=== PATIENT | male | born 1940 | race Caucasian/White ===

== ENCOUNTER 2018-02-13 07:35 | Emergency (ER) | payer SELFPAY ==
[2018-02-13] MEDS ORDERED: NS 500 ML IV ONE (07:37)
--- NOTE | 2018-02-13 07:44 | CPEKG ---
Heart Rate: 53 RR Interval: 1132 P-R Interval: 224 QRSD Interval: 154 QT Interval: 540 QTC Interval: 508 P Trumann: 16 QRS Trumann: -52 T Wave Trumann: 81 EKG Severity - ABNORMAL ECG - EKG Impression: SINUS RHYTHM EKG Impression: FIRST DEGREE AV BLOCK EKG Impression: LEFT BUNDLE BRANCH BLOCK Electronically Signed By: Lance Mccoy 13-Feb-2018 14:35:19
[2018-02-13 08:16] LABS: INR 4.59 (0.83-1.16); PROTIME(PATIENT) 42.9 SEC (12.0-15.0)
--- NOTE | 2018-02-13 08:28 | EDPHY ---
H & P Time Seen by Provider: 02/13/18 08:10 HPI/ROS: HPI Dizzy. 77-year-old male by ambulance with family. This patient reports that he got out of bed to urinate earlier this morning. As he stood up he describes feeling mildly lightheaded but more vertiginous. He reports that he fell to 1 side but was able to catch himself on the wall and did not fall to the ground. He reports that since coming to the emergency department he feels better. He denies any worsening of symptoms with head movement. No associated headache. No loss of sensation or weakness in his extremities. No chest pain. No shortness of breath. No palpitations. ROS: Constitutional: No fever, no chills. As above. Eyes: No discharge. No changes in vision. ENT: No sore throat. No nasal congestion or rhinorrhea. Respiratory: No cough. No shortness of breath. Cardiac: No chest pain, no palpitations. Gastrointestinal: No abdominal pain, no vomiting, no diarrhea. Genitourinary: No hematuria. No dysuria or increased frequency with urination. Musculoskeletal: No back pain. No neck pain. No myalgias or arthralgias. Skin: No rashes. Neurological: No headache. No focal weakness or altered sensation. Past medical history: Appendectomy, hyperlipidemia, GERD. Social history: Nonsmoker. Drinks social alcohol. Had a glass of wine last night. Here with family. Visiting from [place]. He comes to [place] every Spring and Fall. Due to return April 22. Physical Exam: General Appearance: Alert, pleasant 77-year-old male, no distress. This patient is responding to questions appropriately and in full sentences. This patient appears well-hydrated and well-nourished. Head: Normocephalic atraumatic. Eyes: Pupils equal and round and reactive to light at 3-2 mm bilaterally, no pallor or injection. No lid edema, erythema or injection. No nystagmus. Negative head impulse testing. No catch-up saccades. Symptoms not induced by head movement. ENT, Mouth: Mucous membranes are moist. The pharyngeal tissues are unremarkable. No edema or swelling. No asymmetry suggestive of abscess. No erythema or exudates. No tongue lacerations or abrasions. Respiratory: There are no retractions, lungs are clear to auscultation with good air movement bilaterally. Cardiovascular: Regular rate and rhythm. Borderline bradycardia. No murmur appreciated. Gastrointestinal: Abdomen is soft and nontender, no masses, bowel sounds normal. No focal tenderness at McBurney's point. No Villegas sign. Neurological: Motor sensory function is grossly intact. Cranial nerves are normal. Gait is normal. Patient walks unassisted without difficulty. Skin: Warm and dry, no rashes. Musculoskeletal: Neck is supple and nontender. Extremities are symmetrical. All joints range without pain or impingement. Psychiatric: No agitation. No depression. Database: EKG: EKG time is 7:41 a.m.; EKG shows a narrow complex normal sinus rhythm with a ventricular rate of 53. Underlying left bundle branch block with appropriate discordance. The NC, QT intervals are within normal limits. There are no ST-T wave changes indicative of ischemic or injury pattern. No evidence of right heart strain. Interpreted by me. Imaging: Chest x-ray AP portable; the cardiac mediastinal silhouette is unremarkable. 2 right-sided mid lung pulmonary nodules. No evidence of infiltrate or pneumothorax. No acute cardiopulmonary disease process noted. Interpreted by me. Diffusion-weighted MRI of brain without contrast: Significant for potential left internal jugular clot as well as left transverse sinus clot. I discussed case with staff radiologist Dr. Brent Garcia. He recommends CT angiogram imaging of the head neck. This has been ordered. CT angiogram of head and neck: Reviewed with staff radiologist Dr. Brent Garcia. Please see his report for further details. Carotid artery Doppler ultrasounds: Negative. Results discussed with staff radiologist Dr. Brent Garcia. Procedures: Emergency department course: IV placed. Vital signs reviewed. Patient started on IV normal saline with 500 cc to be given over the next 30 min to 1 hr. He is currently asymptomatic. He has been up to the bathroom with a normal gait. EKG obtained and reviewed by myself. 10:00 a.m., patient re-evaluated. Resting comfortably at this time. Currently asymptomatic. Repeat neurologic Assessment is nonfocal. Discussed the results of MRI as noted above and need for CT angiogram of brain and neck. Patient consents. 12:45 p.m., patient re-evaluated. Repeat neurologic Assessment is nonfocal. He is able to ambulate with a normal gait and without assistance. The patient has been asymptomatic throughout his emergency department course. Results of all of his diagnostic workup in the emergency department discussed with him and his in detail. At this time I feel he is safe for discharge and he feels comfortable going home. He and his will retrieve medical records in the next day or 2 to bring back to the with them. Follow-up was discussed with the patient. Return to emergency department precautions reviewed. All of his questions were answered. He was discharged in good condition with his . Differential Diagnosis: The differential diagnosis on this patient includes but is not limited to labyrinthitis/vestibular neuronitis, posterior circulation CVA, bradycardia with associated positional hypotension, benign positional vertigo, arrhythmia. This represents a partial list of diagnoses considered. These considerations are based on history, physical exam, past history, reassessment and diagnostic testing. Smoking Status: Never smoked Constitutional: Initial Vital Signs Temperature (C) 36.8 C 02/13/18 07:37 Heart Rate 55 L 02/13/18 07:37 Respiratory Rate 16 02/13/18 07:37 Blood Pressure 198/97 H 02/13/18 07:37 O2 Sat (%) 98 02/13/18 07:37 O2 Delivery Mode Room Air Allergies/Adverse Reactions: No Known Allergies Allergy (Unverified 02/13/18 07:43) Medical Decision Making - Diagnostics Imaging Results: Imaging Impressions Chest X-Ray 02/13/18 07:37 Impression: 1. No pneumonia 2. 2 right pulmonary nodules. If there are any old outside chest x-rays, we would be happy to review them to assess for interval change. If not, recommend noncontrast chest CT. Results discussed with Dr. Mccoy at 8:02 AM. Brain MRI 02/13/18 08:21 Impression: 1. Mild cerebral atrophy. 2. No acute infarct, acute hemorrhage, hydrocephalus, mass effect, or herniation. 3. Suspect thrombosis of the left transverse sinus and left internal jugular vein. Recommend CTA of the head and neck with intravenous delayed imaging. 4. Several nonspecific hyperintense T2/FLAIR signal abnormalities in the white matter of bilateral cerebral hemispheres. Differential diagnosis includes moderate microvascular ischemic gliosis, versus less likely post-infectious/post -inflammatory sequela. Findings and recommendations discussed with Emergency Department physician, Lance Mccoy MD at 9:33 a.m. on 02/13/2018. Final report concurs with initial preliminary interpretation. Carotid Doppler Study 02/13/18 09:40 Impression: 1. Incomplete exam canceled midway through procedure by Dr. Cullen. 2. Right carotid bulb and origin internal carotid artery widely patent on grayscale imaging. 3. Left carotid and vertebral arteries not imaged. Measurement of carotid stenosis is based on velocity parameters that correlate the residual internal carotid diameter with [place] Symptomatic Carotid Endarterectomy Trial (NASCET) based stenosis levels. Head CTA 02/13/18 09:57 Impression: 1. Patent bilateral jugular veins without evidence of thrombosis. 2. 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 3. The MRI findings of slow flow in the left transverse sinus and left jugular vein is a result of the retrograde reflux into the left jugular vein from the left brachiocephalic narrowing. However, no evidence of jugular vein thrombosis. 4. No significant atherosclerotic disease bilateral carotid bifurcations. 5. Patent bilateral vertebrobasilar system. 6. Cervical spondylosis resulting in moderate stenosis at C5-C6 and C6-C7. Measurement of carotid stenosis is based on the residual internal carotid diameter with [place] Symptomatic Carotid Endarterectomy Trial (NASCET) based stenosis levels. CT Angiogram of the Brain Clinical Indications: Vertigo. Technique: CT angiogram of the brain and neck was performed with the uneventful intravenous administration of 100 mL Isovue-370 contrast. Multiplanar reconstructions including 3D reconstructions performed and evaluated on [employer] workstation in order to better evaluate the [place] vessels. Images were manipulated by the radiologist at the computer workstation. Dose reduction techniques were utilized. Findings: Major vessels of the [place] are adequately displayed, demonstrating no evidence of aneurysm, vascular malformation, flow-limiting stenosis, or occlusion. Cerebrovascular atherosclerotic calcifications of bilateral cavernous internal carotid arteries without flow-limiting stenosis. Bilateral cavernous internal carotid arteries and vertebrobasilar system demonstrates no evidence of flow-limiting stenosis, aneurysm, occlusion, or dissection. Superior sagittal sinus, transverse sinuses, and major veins demonstrate no evidence of intraluminal thrombi. Bilateral transverse sinuses, jugular veins, and superior sagittal sinus are patent without thrombosis. Retrograde reflux cephalad into the left jugular vein which accounted for the MRI findings. Impression: 1. Cerebrovascular atherosclerosis. 2. No flow-limiting stenosis of the [place] vessels. 3. No evidence of thrombosis of the superior sagittal sinus, transverse sinuses , sigmoid sinuses, or jugular veins. Findings and recommendations discussed with Emergency Department physician, Lance Mccoy MD at 11:11 a.m. on 02/13/2018. Final report concurs with initial preliminary interpretation. Neck CTA 02/13/18 09:57 Impression: 1. Patent bilateral jugular veins without evidence of thrombosis. 2. 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 3. The MRI findings of slow flow in the left transverse sinus and left jugular vein is a result of the retrograde reflux into the left jugular vein from the left brachiocephalic narrowing. However, no evidence of jugular vein thrombosis. 4. No significant atherosclerotic disease bilateral carotid bifurcations. 5. Patent bilateral vertebrobasilar system. 6. Cervical spondylosis resulting in moderate stenosis at C5-C6 and C6-C7. Measurement of carotid stenosis is based on the residual internal carotid diameter with [place] Symptomatic Carotid Endarterectomy Trial (NASCET) based stenosis levels. CT Angiogram of the Brain Clinical Indications: Vertigo. Technique: CT angiogram of the brain and neck was performed with the uneventful intravenous administration of 100 mL Isovue-370 contrast. Multiplanar reconstructions including 3D reconstructions performed and evaluated on [employer] workstation in order to better evaluate the [place] vessels. Images were manipulated by the radiologist at the computer workstation. Dose reduction techniques were utilized. Findings: Major vessels of the [place] are adequately displayed, demonstrating no evidence of aneurysm, vascular malformation, flow-limiting stenosis, or occlusion. Cerebrovascular atherosclerotic calcifications of bilateral cavernous internal carotid arteries without flow-limiting stenosis. Bilateral cavernous internal carotid arteries and vertebrobasilar system demonstrates no evidence of flow-limiting stenosis, aneurysm, occlusion, or dissection. Superior sagittal sinus, transverse sinuses, and major veins demonstrate no evidence of intraluminal thrombi. Bilateral transverse sinuses, jugular veins, and superior sagittal sinus are patent without thrombosis. Retrograde reflux cephalad into the left jugular vein which accounted for the MRI findings. Impression: 1. Cerebrovascular atherosclerosis. 2. No flow-limiting stenosis of the [place] vessels. 3. No evidence of thrombosis of the superior sagittal sinus, transverse sinuses , sigmoid sinuses, or jugular veins. Findings and recommendations discussed with Emergency Department physician, Lance Mccoy MD at 11:11 a.m. on 02/13/2018. Final report concurs with initial preliminary interpretation. Carotid Doppler Study 02/13/18 11:05 Impression: No hemodynamically significant stenosis by systolic velocity criteria. Measurement of carotid stenosis is based on velocity parameters that correlate the residual internal carotid diameter with [place] Symptomatic Carotid Endarterectomy Trial (NASCET) based stenosis levels. Findings called to the ER 02/13/2018 at 11:54. - Data Points Laboratory Results: Laboratory Results 02/13/18 11:30 02/13/18 09:29 02/13/18 02/13/18 02/13/18 11:30 09:40 09:29 WBC 4.63 10^3/uL 10^3/uL REJ (3.80-9.50) RBC 4.23 10^6/uL L 10^6/uL REJ (4.40-6.38) Hgb 13.8 g/dL g/dL REJ (13.7-17.5) Hct 39.0 % L % REJ (40.0-51.0) MCV 92.2 fL fL REJ (81.5-99.8) MCH 32.6 pg pg REJ (27.9-34.1) MCHC 35.4 g/dL g/dL REJ (32.4-36.7) RDW 14.6 % % REJ (11.5-15.2) Plt Count 181 10^3/uL 10^3/uL REJ (150-400) MPV 9.1 fL fL REJ (8.7-11.7) Neut % (Auto) 72.2 % % REJ (39.3-74.2) Lymph % (Auto) 19.7 % % REJ (15.0-45.0) [place] % (Auto) 7.3 % % REJ (4.5-13.0) Eos % (Auto) 0.2 % L % REJ (0.6-7.6) Baso % (Auto) 0.4 % % REJ (0.3-1.7) Nucleat RBC Rel Count 0.0 % % REJ (0.0-0.2) Absolute Neuts (auto) 3.34 10^3/uL 10^3/uL REJ (1.70-6.50) Absolute Lymphs (auto) 0.91 10^3/uL L 10^3/uL REJ (1.00-3.00) Absolute Monos (auto) 0.34 10^3/uL 10^3/uL REJ (0.30-0.80) Absolute Eos (auto) 0.01 10^3/uL L 10^3/uL REJ (0.03-0.40) Absolute Basos (auto) 0.02 10^3/uL 10^3/uL REJ (0.02-0.10) Absolute Nucleated RBC 0.00 10^3/uL 10^3/uL Not Reported (0-0.01) Immature Gran % 0.2 % % REJ (0.0-1.1) Immature Gran # 0.01 10^3/uL 10^3/uL REJ (0.00-0.10) PT 12.3 SEC D SEC (12.0-15.0) INR 0.89 (0.83-1.16) APTT 20.0 SEC L D SEC (23.0-38.0) VBG Lactic Acid Sodium Potassium Chloride Carbon Dioxide Anion Gap BUN Creatinine Estimated GFR Glucose Calcium Total Bilirubin Conjugated Bilirubin Unconjugated Bilirubin AST ALT Alkaline Phosphatase Troponin I Total Protein Albumin TSH Urine Color Urine Appearance Urine pH Ur Specific [place] Urine Protein Urine Ketones Urine Blood Urine Nitrate Urine Bilirubin Urine Urobilinogen Ur Leukocyte Esterase Urine RBC Urine WBC Ur Epithelial Cells Urine Glucose 02/13/18 02/13/18 02/13/18 09:29 09:29 08:20 WBC RBC Hgb Hct MCV MCH MCHC RDW Plt Count MPV Neut % (Auto) Lymph % (Auto) [place] % (Auto) Eos % (Auto) Baso % (Auto) Nucleat RBC Rel Count Absolute Neuts (auto) Absolute Lymphs (auto) Absolute Monos (auto) Absolute Eos (auto) Absolute Basos (auto) Absolute Nucleated RBC Immature Gran % Immature Gran # PT INR APTT VBG Lactic Acid 1.7 mmol/L mmol/L (0.7-2.1) Sodium 135 mEq/L mEq/L (135-145) Potassium 4.1 mEq/L mEq/L (3.5-5.2) Chloride 98 mEq/L mEq/L (97-110) Carbon Dioxide 25 mEq/l mEq/l (22-31) Anion Gap 12 mEq/L mEq/L (8-16) BUN 12 mg/dL mg/dL (7-23) Creatinine 0.6 mg/dL L mg/dL (0.7-1.3) Estimated GFR > 60 Glucose 102 mg/dL H mg/dL (70-100) Calcium 8.8 mg/dL mg/dL (8.5-10.4) Total Bilirubin 0.8 mg/dL mg/dL (0.1-1.4) Conjugated Bilirubin 0.4 mg/dL mg/dL (0.0-0.5) Unconjugated Bilirubin 0.4 mg/dL mg/dL (0.0-1.1) AST 26 IU/L IU/L (17-59) ALT 27 IU/L IU/L (21-72) Alkaline Phosphatase 56 IU/L IU/L (38-126) Troponin I < 0.012 ng/mL ng/mL (0.000-0.034) Total Protein 7.5 g/dL g/dL (6.3-8.2) Albumin 4.6 g/dL g/dL (3.5-5.0) TSH 1.070 uIU/mL uIU/mL (0.465-4.680) Urine Color PALE YELLOW Urine Appearance CLEAR Urine pH 7.0 (5.0-7.5) Ur Specific [place] 1.005 (1.002-1.030) Urine Protein NEGATIVE (NEGATIVE) Urine Ketones NEGATIVE (NEGATIVE) Urine Blood NEGATIVE (NEGATIVE) Urine Nitrate NEGATIVE (NEGATIVE) Urine Bilirubin NEGATIVE (NEGATIVE) Urine Urobilinogen NEGATIVE EU EU (0.2-1.0) Ur Leukocyte Esterase NEGATIVE (NEGATIVE) Urine RBC 1-3 /hpf /hpf (0-3) Urine WBC NONE SEEN /hpf /hpf (0-3) Ur Epithelial Cells NONE SEEN /lpf /lpf (NONE-1+) Urine Glucose NEGATIVE (NEGATIVE) 02/13/18 02/13/18 02/13/18 07:45 07:45 07:45 WBC REJ RBC REJ Hgb REJ Hct REJ MCV REJ MCH REJ MCHC REJ RDW REJ Plt Count REJ MPV REJ Neut % (Auto) REJ Lymph % (Auto) REJ [place] % (Auto) REJ Eos % (Auto) REJ Baso % (Auto) REJ Nucleat RBC Rel Count REJ Absolute Neuts (auto) REJ Absolute Lymphs (auto) REJ Absolute Monos (auto) REJ Absolute Eos (auto) REJ Absolute Basos (auto) REJ Absolute Nucleated RBC REJ Immature Gran % REJ Immature Gran # REJ PT 42.9 SEC H SEC (12.0-15.0) INR 4.59 H (0.83-1.16) APTT 72.9 SEC H SEC (23.0-38.0) VBG Lactic Acid Sodium REJ Potassium REJ Chloride REJ Carbon Dioxide REJ Anion Gap REJ BUN REJ Creatinine REJ Estimated GFR REJ Glucose REJ Calcium REJ Total Bilirubin REJ Conjugated Bilirubin REJ Unconjugated Bilirubin REJ AST REJ ALT REJ Alkaline Phosphatase REJ Troponin I REJ Total Protein REJ Albumin REJ TSH REJ Urine Color Urine Appearance Urine pH Ur Specific [place] Urine Protein Urine Ketones Urine Blood Urine Nitrate Urine Bilirubin Urine Urobilinogen Ur Leukocyte Esterase Urine RBC Urine WBC Ur Epithelial Cells Urine Glucose Medications Given: Discontinued Medications Sodium Chloride (Ns) 500 mls @ 1,000 mls/hr IV EDNOW ONE PRN Reason: Protocol Stop: 02/13/18 08:06 Last Admin: 02/13/18 07:59 Dose: 500 mls Departure - Departure Disposition: Home, Routine, Self-Care Clinical Impression: Vertigo Condition: Good Instructions: Vertigo (ED) Additional Instructions: Read and follow provided instructions. Follow-up with your primary care physician in 1-2 days for re-evaluation if you have 1 here. If not, I have given you a referral to a neurologist whom you can follow up with in the next few days regarding your symptoms and emergency department presentation. Avoid strenuous physical activity as discussed. Keep well hydrated. Return to the emergency department for worsening vertigo, lightheadedness, fainting, chest pain, palpitation or other serious concerns. Referrals: Patient,NotPresent [Unknown] - As per Instructions
[2018-02-13] MEDS ORDERED: IOPAMIDOL (ISOVUE-300) 150 ML BTL ONE (10:05)
[2018-02-13 10:06] LABS: INR 0.89 (0.83-1.16); PROTIME(PATIENT) 12.3 SEC (12.0-15.0)
[2018-02-13] MEDS ORDERED: IOPAMIDOL (ISOVUE-370) 150 ML BTL IV ONE (10:07)
[2018-02-13 11:49] LABS: PLATELET COUNT 181 10^3/uL (150-400)
[2018-02-13 12:52] VITALS: BP 180/99
== END 2018-02-13 12:59 | disposition home or self-care (01) ==
LOC: EDBD → EDUNIT#
DX: R42 Dizziness and giddiness (principal); E86.9 Volume depletion, unspecified
CPT/HCPCS: Q9967

== ENCOUNTER 2018-02-20 11:58 | Inpatient (IN) | payer OTHER ==
--- NOTE | 2018-02-20 12:36 | EDPHY ---
H & P Stated [facility] - Personal History Current Tetanus/Diphtheria Vaccine: Unsure - Medical/Surgical History Hx Asthma: No Hx Chronic Respiratory Disease: No Hx Diabetes: No Hx Cardiac Disease: No Hx Renal Disease: No Hx Cirrhosis: No Hx Alcoholism: No Hx HIV/AIDS: No Hx Splenectomy or Spleen Trauma: No Other PMH: appy, high chol, gerd - Social History Smoking Status: Never smoked Time Seen by Provider: 02/20/18 12:22 HPI/ROS: CHIEF COMPLAINT: "I missed the curb" HISTORY OF PRESENT ILLNESS: 77-year-old male with no anticoagulant use, out-of- date tetanus, arrives via ambulance after he tripped on incongruent he on the curb fell forward impacting the left frontal region of his head. No loss of consciousness. No alcohol or drug use. No midline C-spine pain. No peripheral paresthesia, weakness, numbness. No chest pain or trauma. No back pain or trauma. No abdominal pain or trauma. REVIEW OF SYSTEMS: A ten point review of systems was performed and is negative with the exception of the items mentioned in the HPI PAST MEDICAL/SURGICAL HISTORY: no anticoagulant use, hyponatremia history followed by his physicians in [place] SOCIAL HISTORY: denies alcohol use at time of incident. Patient splits his time between [place], [facility] and [place]. PHYSICAL EXAM 1) GENERAL: Well-developed, well-nourished, alert and oriented. Appears to be in no acute distress. Answering questions appropriately. 2) HEAD: Normocephalic, left frontal region abrasion and 1.5 cm laceration, left zygomatic abrasion and soft tissue swelling 3) HEENT: Pupils equal, round, reactive to light bilaterally. Negative Horners. Nasopharynx, oropharynx, clear. No deformity or angulation of nose. No septal hematoma. No rhinorrhea. No oral trauma. Ears bilaterally with normal tympanic membranes. No hemotympanum. No fluid or blood in the external auditory canal. No raccoon eyes. No Chavarria sign. Teeth are normally aligned with no gross malocclusion, TMJ bilaterally nontender, facial bones nontender including the zygomatic arch, maxilla mandible. 4) NECK: Cervical collar is on.Cervical collar is removed while holding inline traction and patient is unable to completely differentiate between true midline pain versus just lateral of midline pain. 5) LUNGS: Clear to auscultation bilaterally, no wheezes, no rhonchi, no retractions. No obvious signs of trauma. No chest wall pain. No flaring, no grunting. Moving symmetrically. No crepitus. 6) HEART: [Regular rate and rhythm, 7) ABDOMEN: No guarding, no rebound, no focal tenderness, no peritoneal signs, no signs of trauma, no ecchymosis 8) MUSCULOSKELETAL: Moving all extremities, no focal areas of tenderness, no obvious trauma. 9) BACK: No midline vertebral tenderness, no fluctuance, no step-off, no obvious trauma, no visual or palpable abnormality. 10) SKIN: Laceration forehead DIFFERENTIAL DIAGNOSIS: Not necessarily in any particular order, my differential diagnosis includes, but is not limited to, concussion, skull fracture, intraparenchymal contusion, subarachnoid, subdural and epidural hematoma. The patient understands that this diagnosis is provisional and can never be 100% accurate. (Tonya Johnson) Constitutional: Initial Vital Signs Temperature (C) 36.7 C 02/20/18 12:30 Heart Rate 73 02/20/18 12:30 Respiratory Rate 16 02/20/18 12:30 Blood Pressure 204/109 H 02/20/18 12:30 O2 Sat (%) 96 02/20/18 12:30 O2 Delivery Mode Room Air O2 (L/minute) 2 Allergies/Adverse Reactions: No Known Allergies Allergy (Unverified 02/20/18 12:34) Home Medications: Medication Instructions Recorded Omeprazole 02/20/18 Prozac 10 MG (*) 02/20/18 SIMVASTATIN 02/20/18 Medical Decision Making - Diagnostics Imaging Results: Imaging Impressions Head CT 02/20/18 12:34 Impression: 1. Facial hematoma/laceration with no acute intracranial findings. 2. Diffuse cerebral atrophy with periventricular and subcortical low attenuation consistent with chronic microvascular ischemic gliosis. Findings discussed with Tonya Johnson on 02/20/2018 at 13:29. Cervical Spine CT 02/20/18 12:36 Impression: 1. No acute posttraumatic abnormality identified. If there is persistent pain or neurologic deficit, consider MRI and/or flexion and extension views if clinically indicated. 2. Multilevel degenerative change with moderate to severe spinal canal narrowing throughout the cervical spine. 3. Additional findings as above. Findings discussed with Tonya Johnson on 02/20/2018 at 13:29. Procedures: Procedure: Laceration repair with tissue adhesive Verbal consent was obtained from the patient. The 1.5 cm laceration on the left frontal region. The wound was scrubbed and explored to its base with a gloved finger. No foreign body seen, no foreign bodies palpated. There were no deep structures involved. The wound was repaired with tissue adhesive. The procedure was performed by myself. Patient has been informed that scarring will occur, although every effort has been made to minimize this. (Tonya Johnson ) ED Course/Re-evaluation: I did not see this patient while he was in the emergency department. However his care was discussed with the PA while the patient was in the department. I agree with treatment plan and management (Morteza Ashton) 12:35 p.m.: Head CT ordered in this patient for trauma for the following indication: Greater than 65 years old. Care of patient under supervision of secondary supervising physician Dr Morteza Ashton with whom I discussed case 2:41 p.m.: Patient was re-evaluated with serial examinations. He has significant left periorbital soft tissue swelling and ecchymosis to the point where he is unable to actively open his left eye. Informs me that he has a history of decreased visual acuity in his right eye. He also informs that he lives by himself and expresses concerns about his ability to care for himself while using monocular vision from his already bad eye. Plan will be admission therefore to the trauma service. 2:59 p.m.: Consultation with Dr. Hurely via the circulating nurse in the operating room. Dr. Hurley agrees to admit patient. (Tonya Johnson) - Data Points Laboratory Results: Laboratory Results 02/20/18 12:15 02/20/18 12:15 02/20/18 02/20/18 02/20/18 12:15 12:15 12:14 WBC 5.80 10^3/uL 10^3/uL (3.80-9.50) RBC 3.85 10^6/uL L 10^6/uL (4.40-6.38) Hgb 12.7 g/dL L g/dL (13.7-17.5) POC Hgb 13.3 gm/dL L gm/dL (13.7-17.5) Hct 35.8 % L % (40.0-51.0) POC Hct 39 % L % (40-51) MCV 93.0 fL fL (81.5-99.8) MCH 33.0 pg pg (27.9-34.1) MCHC 35.5 g/dL g/dL (32.4-36.7) RDW 14.3 % % (11.5-15.2) Plt Count 190 10^3/uL 10^3/uL (150-400) MPV 9.8 fL fL (8.7-11.7) Neut % (Auto) 60.2 % % (39.3-74.2) Lymph % (Auto) 26.9 % % (15.0-45.0) Cannon % (Auto) 11.7 % % (4.5-13.0) Eos % (Auto) 0.7 % % (0.6-7.6) Baso % (Auto) 0.3 % % (0.3-1.7) Nucleat RBC Rel Count 0.0 % % (0.0-0.2) Absolute Neuts (auto) 3.49 10^3/uL 10^3/uL (1.70-6.50) Absolute Lymphs (auto) 1.56 10^3/uL 10^3/uL (1.00-3.00) Absolute Monos (auto) 0.68 10^3/uL 10^3/uL (0.30-0.80) Absolute Eos (auto) 0.04 10^3/uL 10^3/uL (0.03-0.40) Absolute Basos (auto) 0.02 10^3/uL 10^3/uL (0.02-0.10) Absolute Nucleated RBC 0.00 10^3/uL 10^3/uL (0-0.01) Immature Gran % 0.2 % % (0.0-1.1) Immature Gran # 0.01 10^3/uL 10^3/uL (0.00-0.10) POC Sodium 126 mEq/L L mEq/L (135-145) Sodium 124 mEq/L L mEq/L (135-145) POC Potassium 3.7 mEq/L mEq/L (3.3-5.0) Potassium 4.0 mEq/L mEq/L (3.3-5.0) POC Chloride 88 mEq/L L mEq/L (97-110) Chloride 89 mEq/L L mEq/L (97-110) Carbon Dioxide 26 mEq/l mEq/l (22-31) Anion Gap 9 mEq/L mEq/L (8-16) POC BUN 9 mg/dL mg/dL (7-23) BUN 11 mg/dL mg/dL (7-23) Creatinine 0.7 mg/dL mg/dL (0.7-1.3) POC Creatinine 0.7 mg/dL mg/dL (0.7-1.3) Estimated GFR > 60 Glucose 75 mg/dL mg/dL (70-100) POC Glucose 80 mg/dL mg/dL (70-100) Calcium 8.4 mg/dL L mg/dL (8.5-10.4) Medications Given: Discontinued Medications Diphtheria/Tetanus/Acell Pertussis (Boostrix) 0.5 ml IM .ONCE ONE Stop: 02/20/18 12:39 Last Admin: 02/20/18 12:51 Dose: 0.5 ml Fentanyl (Sublimaze) 50 mcg IVP EDNOW ONE Stop: 02/20/18 13:00 Last Admin: 02/20/18 13:06 Dose: 50 mcg Tetracaine/Epinephrine/Lidocaine (Let Gel Topical) 1 ea TP EDNOW ONE Stop: 02/20/18 12:42 Last Admin: 02/20/18 12:51 Dose: 1 ea Point of Care Test Results: 02/20/18 12:14 POC Sodium 126 L POC Potassium 3.7 POC Chloride 88 L POC BUN 9 POC Creatinine 0.7 POC Glucose 80 Departure - Departure Disposition: [facility] Inpatient Acute Clinical Impression: Periorbital edema of left eye, Hyponatremia Frontal head injury Qualifiers: Encounter type: initial encounter Qualified Code(s): S09.90XA - Unspecified injury of head, initial encounter Forehead laceration Qualifiers: Encounter type: initial encounter Qualified Code(s): S01.81XA - Laceration without foreign body of other part of head, initial encounter Forehead abrasion Qualifiers: Encounter type: initial encounter Qualified Code(s): S00.81XA - Abrasion of other part of head, initial encounter Condition: Fair
[2018-02-20] MEDS ORDERED: TDAP ADULT 0.5 ML INJ (BOOSTRIX) IM ONE (12:38)
[2018-02-20] MEDS ORDERED: LET GEL TOPICAL 1 EA SYR TP ONE (12:41)
[2018-02-20] MEDS ORDERED: fentaNYL 100 MCG/2 ML INJ IVP ONE (12:59)
[2018-02-20] MEDS ORDERED: SKIN ADHESIVE (DERMABOND) 1 EACH TP ONE (14:21)
[2018-02-20 14:44] LABS: PLATELET COUNT 190 10^3/uL (150-400)
[2018-02-20] MEDS ORDERED: ACETAMINOPHEN 500 MG TAB ONE (15:56)
[2018-02-20] MEDS ORDERED: ACETAMINOPHEN 500 MG TAB PO ONE (15:56)
[2018-02-20] MEDS ORDERED: HYDROCODONE/APAP 5/325 TAB PO PRN (16:31)
[2018-02-20] MEDS ORDERED: ONDANSETRON 4 MG/2 ML VIAL IVP PRN (16:31)
[2018-02-20] MEDS ORDERED: ZOLPIDEM TARTRATE 5 MG TAB PO PRN (16:31)
[2018-02-20] MEDS ORDERED: PNEUMOC 13-VAL CONJ-DIP CRM/PF 0.5 ML SYR IM ONE (17:27)
[2018-02-20] MEDS ORDERED: hydrALAZINE 20 MG/ML VIAL IVP PRN (18:11)
--- NOTE | 2018-02-20 21:06 | PDGENHP ---
History and Physical - Chief Complaint Mechanical fall, left eye swelling - History of Present Illness This is a 69-year-old gentleman who arrives from [place] 10 days ago for his summer stay in [place]. He tripped and fell over a"bad piece of sidewalk"he struck his left face he denies any loss of consciousness he has no other physical ailment this time related to the trauma. GCS was 15 patient has no family to help take care of him. He is legally blind in his right eye and since the left eye is swollen shut he is unable to navigate without complete assistance. History Information - Allergies/Home Medication List Allergies/Adverse Reactions: No Known Allergies Allergy (Unverified 02/20/18 12:34) Home Medications: FLUoxetine [Prozac 10 MG (*)] 10 mg PO DAILY 02/20/18 [Last Taken 02/20/18] Omeprazole 20 mg PO DAILY 02/20/18 [Last Taken 02/20/18] Simvastatin 10 mg PO HS 02/20/18 [Last Taken 02/19/18] I have personally reviewed and updated: medical history, social history, surgical history - Past Medical History Additional medical history: Depression, dyspepsia, hyperlipidemia - Surgical History Additional surgical history: Bilateral inguinal hernia repair, 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 - Family History Positive for: non-pertinent - Social History Smoking Status: Never smoked Review of Systems Review of Systems: Muscolosketal: Reports: other (Congenital deformity right hand) Physical Exam Physical Exam: Temp Pulse Resp BP Pulse Ox 36.4 C 74 16 146/88 H 93 02/20/18 19:49 02/20/18 19:49 02/20/18 19:49 02/20/18 19:49 02/20/18 19:49 Constitutional: no apparent distress Eyes: other (Right eye 4 mm pupil, left eye swollen shut unable to appreciate conjunctiva or pupil.) Ears, Nose, Mouth, Throat: moist mucous membranes Cardiovascular: regular rate and rhythym Peripheral Pulses: 2+: carotid (R), carotid (L), femoral (R), femoral (L), dorsalis-pedis (R), dorsalis-pedis (L) Respiratory: no respiratory distress, clear to auscultation Gastrointestinal: normoactive bowel sounds, No tenderness, No hepatosplenomegally Skin: normal color Musculoskeletal: full muscle strength Neurologic: AAOx3, CN II-XII Intact Psychiatric: interacting appropriately Lymph, Heme, Immunologic: no cervical LAD, no supraclavicular LAD Lab Data & Imaging Review 02/20/18 12:15 02/20/18 12:15 WBC 5.80 10^3/uL (3.80-9.50) 02/20/18 12:15 RBC 3.85 10^6/uL (4.40-6.38) L 02/20/18 12:15 Hgb 12.7 g/dL (13.7-17.5) L 02/20/18 12:15 POC Hgb 13.3 gm/dL (13.7-17.5) L 02/20/18 12:14 Hct 35.8 % (40.0-51.0) L 02/20/18 12:15 POC Hct 39 % (40-51) L 02/20/18 12:14 MCV 93.0 fL (81.5-99.8) 02/20/18 12:15 MCH 33.0 pg (27.9-34.1) 02/20/18 12:15 MCHC 35.5 g/dL (32.4-36.7) 02/20/18 12:15 RDW 14.3 % (11.5-15.2) 02/20/18 12:15 Plt Count 190 10^3/uL (150-400) 02/20/18 12:15 MPV 9.8 fL (8.7-11.7) 02/20/18 12:15 Neut % (Auto) 60.2 % (39.3-74.2) 02/20/18 12:15 Lymph % (Auto) 26.9 % (15.0-45.0) 02/20/18 12:15 [place] % (Auto) 11.7 % (4.5-13.0) 02/20/18 12:15 Eos % (Auto) 0.7 % (0.6-7.6) 02/20/18 12:15 Baso % (Auto) 0.3 % (0.3-1.7) 02/20/18 12:15 Nucleat RBC Rel Count 0.0 % (0.0-0.2) 02/20/18 12:15 Absolute Neuts (auto) 3.49 10^3/uL (1.70-6.50) 02/20/18 12:15 Absolute Lymphs (auto) 1.56 10^3/uL (1.00-3.00) 02/20/18 12:15 Absolute Monos (auto) 0.68 10^3/uL (0.30-0.80) 02/20/18 12:15 Absolute Eos (auto) 0.04 10^3/uL (0.03-0.40) 02/20/18 12:15 Absolute Basos (auto) 0.02 10^3/uL (0.02-0.10) 02/20/18 12:15 Absolute Nucleated RBC 0.00 10^3/uL (0-0.01) 02/20/18 12:15 Immature Gran % 0.2 % (0.0-1.1) 02/20/18 12:15 Immature Gran # 0.01 10^3/uL (0.00-0.10) 02/20/18 12:15 POC Sodium 126 mEq/L (135-145) L 02/20/18 12:14 Sodium 124 mEq/L (135-145) L 02/20/18 12:15 POC Potassium 3.7 mEq/L (3.3-5.0) 02/20/18 12:14 Potassium 4.0 mEq/L (3.3-5.0) 02/20/18 12:15 POC Chloride 88 mEq/L (97-110) L 02/20/18 12:14 Chloride 89 mEq/L (97-110) L 02/20/18 12:15 Carbon Dioxide 26 mEq/l (22-31) 02/20/18 12:15 Anion Gap 9 mEq/L (8-16) 02/20/18 12:15 POC BUN 9 mg/dL (7-23) 02/20/18 12:14 BUN 11 mg/dL (7-23) 02/20/18 12:15 Creatinine 0.7 mg/dL (0.7-1.3) 02/20/18 12:15 POC Creatinine 0.7 mg/dL (0.7-1.3) 02/20/18 12:14 Estimated GFR > 60 02/20/18 12:15 Glucose 75 mg/dL (70-100) 02/20/18 12:15 POC Glucose 80 mg/dL (70-100) 02/20/18 12:14 Calcium 8.4 mg/dL (8.5-10.4) L 02/20/18 12:15 Imaging Review: Imaging Impressions Head CT 02/20/18 12:34 Impression: 1. Facial hematoma/laceration with no acute intracranial findings. 2. Diffuse cerebral atrophy with periventricular and subcortical low attenuation consistent with chronic microvascular ischemic gliosis. Findings discussed with Tonya Johnson on 02/20/2018 at 13:29. Cervical Spine CT 02/20/18 12:36 Impression: 1. No acute posttraumatic abnormality identified. If there is persistent pain or neurologic deficit, consider MRI and/or flexion and extension views if clinically indicated. 2. Multilevel degenerative change with moderate to severe spinal canal narrowing throughout the cervical spine. 3. Additional findings as above. Findings discussed with Tonya Johnson on 02/20/2018 at 13:29. Assessment & Plan Assessment: Forehead abrasion (Acute) Forehead laceration (Acute) Frontal head injury (Acute) Hyponatremia (Acute) Periorbital edema of left eye (Acute) Plan: Admit to the hospital for observation and post hospital disposition planning. Ice to left eye for swelling. Restart home medications. Regular diet.
[2018-02-20] MEDS: IBUPROFEN 600 MG TAB PO SCH (21:21)
[2018-02-21] MEDS: IBUPROFEN 600 MG TAB PO SCH ×2 (05:07→14:58)
[2018-02-21] MEDS: PANTOPRAZOLE SODIUM 40 MG TAB PO SCH (07:37)
[2018-02-21] MEDS: FLUoxetine 10 MG CAP PO SCH (07:37)
[2018-02-21] MEDS ORDERED: NON-FORMULARY NEW DRUG (Omeprazole [Omeprazole] 20 MG) PO SCH (09:00)
--- NOTE | 2018-02-21 11:37 | SOAPPROG ---
SOAP Progress Note Assessment/Plan: Assessment: Plan: Subjective: hd 2 pt admitted after a fall with lef orbital echymosis pt can see out of both eyew, but i notice his sodiumwas 124 on admit.. will michaele medicen see him prior to discharge. Objective: Vital Signs Temp Pulse Resp BP Pulse Ox 36.6 C 86 18 174/98 H 92 02/21/18 08:00 02/21/18 08:00 02/21/18 08:00 02/21/18 08:00 02/21/18 08:00 ICD10 Worksheet Patient Problems: Problems Problem Status Onset Forehead abrasion Acute Forehead laceration Acute Frontal head injury Acute Hyponatremia Acute Periorbital edema of left eye Acute
[2018-02-21] MEDS: ACETAMINOPHEN 325 MG TAB PO PRN (12:15)
--- NOTE | 2018-02-21 14:25 | ASMTCMCOM ---
CM Note CM Note Notes: Patient admitted after falling and striking his face on the sidewalk. Fortunately, his head CT was normal. He will be seen by hospital medicine for a low Na lab result. Patient is normally independent; however, he is blind in his right eye, so the swelling on his left side was making it very difficult for him to see. Today, he can see better but would probably benefit from one more day inpatient. He lives alone and has neighbors who can check in on him but not take care of him. He declined my offer of Meals on Wheels, stating that he likes to look after himself. He is from [place] and spends devlin here. He will have a neighbor pick him up on discharge. Date Signed: 02/21/2018 02:24 PM Electronically Signed By:Mariela Harry RN
[2018-02-21] MEDS: NS 1,000 ML IV SCH (16:41)
--- NOTE | 2018-02-21 17:06 | PDHOSCONS ---
History and Physical - Chief Complaint Acute hyponatremia - History of Present Illness Primary care provider: None locally HPI: 77-year-old male presents with acute fall characterized as purely mechanical, with associated pain located around his left eye with adjacent bruising and swelling. The patient was reportedly ambulating and tripped over the sidewalk, landing on his left face, resulting in facial trauma and presentation to [facility]. Patient was admitted by the trauma service and has been receiving acetaminophen for pain control which has been alleviating the left facial pain. He has otherwise been taking all of his home medications. He initially experienced some reduction in ability to navigate secondary to swelling covering his left eye, and underlying right eye vision issues. Since the swelling has somewhat subsided after icing the affected area , the patient's ability to independently navigate has improved. He reports that he has had normal urine output, and has been drinking tea and water regularly. He reports he has also been eating a normal amount of food. The patient presented to [place] approximately 10 days ago from his home city of [place]. Since arriving in [place], he has been consuming an increased amount of water and tea, secondary to people's recommendations. He presented to the emergency department 1 week ago for vertiginous symptoms which have subsequently resolved. There were consistent with his known history of BPPV. History Information - Allergies/Home Medication List Allergies/Adverse Reactions: No Known Allergies Allergy (Unverified 02/20/18 12:34) Home Medications: FLUoxetine [Prozac 10 MG (*)] 10 mg PO DAILY 02/20/18 [Last Taken 02/20/18] Omeprazole 20 mg PO DAILY 02/20/18 [Last Taken 02/20/18] Simvastatin 10 mg PO HS 02/20/18 [Last Taken 02/19/18] I have personally reviewed and updated: family history, medical history, social history, surgical history - Past Medical History Additional medical history: Depression, dyspepsia, hyperlipidemia, BPPV, reduction in right eye vision - Surgical History Additional surgical history: Bilateral inguinal hernia repair, 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 - Family History Additional family history: No family history of end-stage renal disease, no family history of pituitary disorders - Social History Smoking Status: Never smoked Alcohol Use: Occasionally (Only 1 alcoholic beverage nightly) Drug Use: None Additional social history: Resides in a neighborhood of [place] in summer and winter, resides in [place] in spring and fall Review of Systems Review of Systems: ROS: 10pt was reviewed & negative except for what was stated in HPI & below EENMT: Reports: other (Left eye pain) Physical Exam Physical Exam: Temp Pulse Resp BP Pulse Ox 36.7 C 66 16 157/94 H 95 02/21/18 16:00 02/21/18 16:00 02/21/18 16:00 02/21/18 16:00 02/21/18 16:00 Constitutional: no apparent distress, appears nourished, not in pain Eyes: PERRL, anicteric sclera, EOMI, scleral injection (Left eye) Ears, Nose, Mouth, Throat: moist mucous membranes, hearing normal, ears appear normal, no oral mucosal ulcers Cardiovascular: regular rate and rhythym, no murmur, rub, or gallop, No edema Respiratory: no respiratory distress, no rales or rhonchi, clear to auscultation Gastrointestinal: normoactive bowel sounds, soft, non-tender abdomen, no palpable masses Skin: other (Dense ecchymoses adjacent to his left eye with some abrasions and scabbing) Neurologic: AAOx3, sensation intact bilaterally, No weakness Psychiatric: interacting appropriately, not anxious, not encephalopathic, thought process linear Lab Data & Imaging Review 02/20/18 12:15 02/21/18 11:59 WBC 5.80 10^3/uL (3.80-9.50) 02/20/18 12:15 RBC 3.85 10^6/uL (4.40-6.38) L 02/20/18 12:15 Hgb 12.7 g/dL (13.7-17.5) L 02/20/18 12:15 POC Hgb 13.3 gm/dL (13.7-17.5) L 02/20/18 12:14 Hct 35.8 % (40.0-51.0) L 02/20/18 12:15 POC Hct 39 % (40-51) L 02/20/18 12:14 MCV 93.0 fL (81.5-99.8) 02/20/18 12:15 MCH 33.0 pg (27.9-34.1) 02/20/18 12:15 MCHC 35.5 g/dL (32.4-36.7) 02/20/18 12:15 RDW 14.3 % (11.5-15.2) 02/20/18 12:15 Plt Count 190 10^3/uL (150-400) 02/20/18 12:15 MPV 9.8 fL (8.7-11.7) 02/20/18 12:15 Neut % (Auto) 60.2 % (39.3-74.2) 02/20/18 12:15 Lymph % (Auto) 26.9 % (15.0-45.0) 02/20/18 12:15 [place] % (Auto) 11.7 % (4.5-13.0) 02/20/18 12:15 Eos % (Auto) 0.7 % (0.6-7.6) 02/20/18 12:15 Baso % (Auto) 0.3 % (0.3-1.7) 02/20/18 12:15 Nucleat RBC Rel Count 0.0 % (0.0-0.2) 02/20/18 12:15 Absolute Neuts (auto) 3.49 10^3/uL (1.70-6.50) 02/20/18 12:15 Absolute Lymphs (auto) 1.56 10^3/uL (1.00-3.00) 02/20/18 12:15 Absolute Monos (auto) 0.68 10^3/uL (0.30-0.80) 02/20/18 12:15 Absolute Eos (auto) 0.04 10^3/uL (0.03-0.40) 02/20/18 12:15 Absolute Basos (auto) 0.02 10^3/uL (0.02-0.10) 02/20/18 12:15 Absolute Nucleated RBC 0.00 10^3/uL (0-0.01) 02/20/18 12:15 Immature Gran % 0.2 % (0.0-1.1) 02/20/18 12:15 Immature Gran # 0.01 10^3/uL (0.00-0.10) 02/20/18 12:15 POC Sodium 126 mEq/L (135-145) L 02/20/18 12:14 Sodium 123 mEq/L (135-145) L 02/21/18 11:59 POC Potassium 3.7 mEq/L (3.3-5.0) 02/20/18 12:14 Potassium 4.0 mEq/L (3.3-5.0) 02/20/18 12:15 POC Chloride 88 mEq/L (97-110) L 02/20/18 12:14 Chloride 89 mEq/L (97-110) L 02/20/18 12:15 Carbon Dioxide 26 mEq/l (22-31) 02/20/18 12:15 Anion Gap 9 mEq/L (8-16) 02/20/18 12:15 POC BUN 9 mg/dL (7-23) 02/20/18 12:14 BUN 11 mg/dL (7-23) 02/20/18 12:15 Creatinine 0.7 mg/dL (0.7-1.3) 02/20/18 12:15 POC Creatinine 0.7 mg/dL (0.7-1.3) 02/20/18 12:14 Estimated GFR > 60 02/20/18 12:15 Glucose 75 mg/dL (70-100) 02/20/18 12:15 POC Glucose 80 mg/dL (70-100) 02/20/18 12:14 Calcium 8.4 mg/dL (8.5-10.4) L 02/20/18 12:15 TSH 1.820 uIU/mL (0.465-4.680) 02/20/18 12:00 Urine Osmolality 155 mosmo/kg (300-900) L 02/21/18 12:25 Ur Random Sodium 14 mEq/L (30-90) L 02/21/18 12:25 Visualized and Interpreted imaging results: Yes Interpretation: Head CT demonstrates facial hematoma on the left as well as some cerebral atrophy, no intracranial hemorrhage Assessment & Plan Assessment: 77-year-old male presents with acute mechanical fall and left facial trauma complicated by acute hyponatremia Plan: 1. Hyponatremia. Acute, new problem this provider, further workup indicated. 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 Lance Mccoy, indicates patient was asymptomatic at time of discharge and he received 500 cc of normal saline during the encounter -patient's serum sodium level has been down trending since presentation, despite the patient reporting that he has been drinking less fluid during this hospitalization that he would otherwise -I suspect the patient has a mixed etiology, and we will provide him with normal saline 100 cc/hour as well as fluid restrict him to 1.5 L of free water per 24 hr -repeat serum chemistry at 8:00 p.m. to ensure that the patient's serum sodium level is not worsening, then repeat in a.m. -if patient's serum sodium level has stabilized and is up trending, will provide him with a script tomorrow for outpatient lab recheck as well as outpatient primary care provider to continue monitoring 2. Facial trauma. Trauma surgery remains primary service, ongoing pain management Upgraded to inpatient admission status for reasonable medical necessity including acute hyponatremia worsening and requiring IV saline infusion as well as frequent lab monitoring with concomitant fluid restriction, anticipated length stay is greater than 48 hr. Hospital Medicine will continue to consult in this patient's daily care.
[2018-02-21] MEDS: PRAVASTATIN SODIUM 20 MG TAB PO SCH (20:36)
[2018-02-21] MEDS ORDERED: NON-FORMULARY NEW DRUG (Simvastatin [Simvastatin] 10 MG) PO SCH (21:00)
--- NOTE | 2018-02-21 21:57 | PDMN ---
Medical Necessity Medical necessity: Patient meets inpatient criteria per physician note and MCG Systemic or Infectious Condition GRG (acute hyponatremia/Na 123-126 since observation for facial trauma; LOS will be > 2 midnights for IV saline infusion and free water fluid restriction, serial monitoring of sodium level.)
[2018-02-22] MEDS: NS 1,000 ML IV SCH (03:26)
[2018-02-22] MEDS: FLUoxetine 10 MG CAP PO SCH (08:05)
[2018-02-22] MEDS: ACETAMINOPHEN 325 MG TAB PO PRN ×2 (08:05→17:16)
[2018-02-22] MEDS: PANTOPRAZOLE SODIUM 40 MG TAB PO SCH (08:05)
--- NOTE | 2018-02-22 08:40 | HOSPPROG ---
Hospitalist Progress Note Assessment/Plan: Assessment: 77-year-old male presents with acute mechanical fall and left facial trauma complicated by acute hyponatremia Plan: 1. Hyponatremia. Acute, likely a mixed picture w/ labs indicating hypovolemic process, but hx supportive of a euvolemic primary polydipsia -sNa improved to 130 this AM s/p combination of NS 100cc/hr + 1.5L/day fluid restriction -d/w patient, recommended that he adhere to approx 1.5L/day fluid restriction on discharge for the next several days (has measuring device at home) and purchase some electrolyte containing water (Smart Water or Electrolyte water) if he consumes free water while in [place] -stop IVF now -safe for discharge home -OK to continue fluoxetine, as it is unlikely that it is the etiology of his acute drop, given rapid improvement in sNa despite continuing Rx -d/w Dr. Pérez, we agreed that patient should establish care w/ a PCP and have sNa checked next week, to ensure stability 2. Facial trauma. Trauma surgery remains primary service, ongoing pain management -patient will get PT/OT evals today to determine whether he is safe to ambulate independently, has not been mobile this AM, orders placed Hospital Medicine will sign-off at this time; please contact Andrew Basilio if additional consultation is needed. Subjective: patient reports that he is not particularly thirsty despite fluid restriction, moving bowels Objective: Vital Signs Temp Pulse Resp BP Pulse Ox 36.6 C 74 16 153/93 H 93 02/22/18 07:32 02/22/18 07:32 02/22/18 07:32 02/22/18 07:32 02/22/18 07:32 Laboratory Results 02/22/18 04:55 02/21/18 02/22/18 02/23/18 05:59 05:59 05:59 Intake Total 2500 Output Total 1625 350 Balance 875 -350 - Physical Exam Constitutional: no apparent distress, appears nourished, not in pain, No uncomfortable Eyes: PERRL, anicteric sclera, EOMI, scleral injection Cardiovascular: regular rate and rhythym, no murmur, rub, or gallop Respiratory: no respiratory distress, no rales or rhonchi, clear to auscultation Gastrointestinal: normoactive bowel sounds, soft, non-tender abdomen, no palpable masses Neurologic: AAOx3 Psychiatric: interacting appropriately, not anxious, not encephalopathic, thought process linear ICD10 Worksheet Patient Problems: Problems Problem Status Onset Frontal head injury Acute Forehead laceration Acute Forehead abrasion Acute Periorbital edema of left eye Acute Hyponatremia Acute
[2018-02-22] MEDS: PRAVASTATIN SODIUM 20 MG TAB PO SCH (19:56)
--- NOTE | 2018-02-22 20:28 | TRAUMAPN ---
Trauma Progress Note Assessment/Plan: no new complaints. did not ambulate yesterday other than to BR. no lightheadedness. no current dizziness. no visual changes. Ns 130 today. AVSS comfortable. left periorbital ecchymosis with minimal chemosis left pupil neck nontender face nontender heart reg lungs clear abd soft, nontender ext SCD neuro alert and appropriate Forehead abrasion (Acute) Forehead laceration (Acute) Frontal head injury (Acute) Hyponatremia (Acute) Periorbital edema of left eye (Acute) clinically doing well PT/OT to assist with mobility / home needs Na improving - apprec IM assist - reviewed care plan with patient and dr. bocanegra at bedside - will offer outpt f/u medicine reccs - has utilized [facility] in the past. anticipate home tomorrow assuming no issues with ambulation today. patient seen again on evening rounds - good day. showered. ambulated without difficulty. facial swelling better. will be ready for dc tomorrow. Objective: Vital Signs Temp Pulse Resp BP Pulse Ox 36.9 C 85 16 121/69 H 94 02/22/18 20:00 02/22/18 20:00 02/22/18 20:00 02/22/18 20:00 02/22/18 20:00 Laboratory Results 02/22/18 04:55 02/21/18 02/22/18 02/23/18 05:59 05:59 05:59 Intake Total 2500 1080 Output Total 1625 1450 Balance 875 -370
[2018-02-23] MEDS: ACETAMINOPHEN 325 MG TAB PO PRN ×2 (02:20→09:38)
[2018-02-23 08:31] VITALS: BP 176/97
--- NOTE | 2018-02-23 09:32 | PDDCSUM ---
Discharge Summary Discharge Summary: DISCHARGE SUMMARY Date of Admission February 20 Date of Discharge February 23 DISCHARGE DIAGNOSES -left facial and orbital hematoma -hyponatremia HOSPITAL COURSE The patient was admitted from the ED after sustaining a fall with the above injuries. It was noted on admission that the patient was hyponatremic and he subsequently had hospitalist consultation. Throughout his hospital course, his sodium levels yumiko and were 131 on day of discharge. He was subsequently discharged home in stable condition with free water restrictions. DISCHARGE MEDICATIONS Ibuprofen and Tylenol as needed for pain DISPOSITION Home FOLLOW UP Follow up with his primary care provider within the next week, a prescription was given for him for labs on day of visit. 20 min total spent on discharge
[2018-02-23] MEDS: PANTOPRAZOLE SODIUM 40 MG TAB PO SCH (09:39)
[2018-02-23] MEDS: FLUoxetine 10 MG CAP PO SCH (09:39)
== END 2018-02-23 10:37 | disposition home or self-care (01) | DRG 605 ==
LOC: EDUNIT# → OBSVTOIN 14:59 → F3E 16:03
PROVIDERS: ADMIT Surgery; ATTEND Surgery
PROC: 0HQ1XZZ Repair Face Skin, External Approach (ICD-10-PCS; principal; 2018-02-20)
DX: S01.81XA Laceration without foreign body of other part of head, initial encounter (principal); E87.1 Hypo-osmolality and hyponatremia; H02.846 Edema of left eye, unspecified eyelid; K21.9 Gastro-esophageal reflux disease without esophagitis; R40.2411 Glasgow coma scale score 13-15, in the field [EMT or ambulance]; E78.5 Hyperlipidemia, unspecified; H54.61 Unqualified visual loss, right eye, normal vision left eye; W01.0XXA Fall on same level from slipping, tripping and stumbling without subsequent striking against object, initial encounter; Y92.480 Sidewalk as the place of occurrence of the external cause; Z23 Encounter for immunization
CPT/HCPCS: 82947-QW; 92523-GN; 96374; 97161-GP; G0009; G0378; J0360; J3010

== ENCOUNTER 2018-03-16 20:15 | Observation (INO) | payer SELFPAY ==
--- NOTE | 2018-03-16 20:28 | EDPHY ---
H & P Time Seen by Provider: 03/16/18 20:19 HPI/ROS: Chief complaint. Syncope HPI. 77-year-old male here by EMS after having syncopal episode. He was dining by himself in a restaurant. He is tells me he had no preceding symptoms and had a passing out episode. He does not know the duration. However it was witnessed by other diner is and EMS was called to the restaurant. He did vomit once. He had a normal day and was not ill or feeling poorly before dinner. He denies that he has or had any chest discomfort or shortness of breath or abdominal pain. He is not injured. He has had a headache since he was admitted to the hospital on February 23 for trauma. ROS Constitutional. no fever/chills, no weakness Eyes. no problems with vision ENT. no sore throat, no nasal drainage Cardiovascular. no chest pain Respiratory. no shortness of breath, no cough Abdominal. no abdominal pain, no nausea/vomiting, no diarrhea . no problems urinating MS. no calf pain/swelling, no neck/back pain, no joint pain Skin. no rash Lymph. no swollen glands Neuro. Syncope Past Medical/Surgical History: Past medical history appendectomy, dyslipidemia, GERD, vertigo Social History: Single and lives alone. Nonsmoker. Half glass of wine this evening with dinner Smoking Status: Never smoked Physical Exam: General Appearance: Alert well-developed male mild distress vital signs are stable Eyes:[ Pupils equal and round no pallor or injection]. ENT,[ Mouth: Mucous membranes are moist.] Respiratory: [There are no retractions, lungs are clear to auscultation.] Cardiovascular:[ Regular rate and rhythm.] Gastrointestinal: [ Abdomen is soft and nontender, no masses, bowel sounds normal.] Neurological: [Awake and alert, sensory and motor exams grossly normal.] Skin:[ Warm and dry, no rashes.] Musculoskeletal: [Neck is supple nontender.] Extremities [ symmetrical, full range of motion.] Psychiatric:[ Patient is oriented X 3, there is no agitation.] Constitutional: Initial Vital Signs Temperature (C) 36.3 C 03/16/18 20:30 Heart Rate 61 03/16/18 20:30 Respiratory Rate 20 03/16/18 20:30 Blood Pressure 173/90 H 03/16/18 20:30 O2 Sat (%) 97 03/16/18 20:30 O2 Delivery Mode Room Air Allergies/Adverse Reactions: No Known Allergies Allergy (Unverified 03/16/18 20:32) Home Medications: Medication Instructions Recorded FLUoxetine [Prozac 10 MG (*)] 10 mg PO DAILY 02/20/18 Omeprazole 20 mg PO DAILY 02/20/18 Simvastatin 10 mg PO HS 02/20/18 Medical Decision Making - Diagnostics EKG Interpretation: EKG interpreted by me shows normal sinus rhythm with first-degree AV block. There is left bundle branch block. No significant ST elevation or depression. No arrhythmia. The rate is 57. No significant change from previous EKG 02/13/2018 Imaging Results: Imaging Impressions Chest X-Ray 03/16/18 20:51 Impression: 1. No pneumothorax 2. Consider chest two views when the patient's medical condition permits. Head CT 03/16/18 20:51 Impression: 1. Mild atrophy. 2. No acute hemorrhage, hydrocephalus, or mass effect. 3. Cerebrovascular atherosclerosis. 4. No definite acute infarct. 5. Moderate microvascular ischemic gliosis. 6. Left frontal scalp swelling. 7. No epidural or subdural hematoma. Findings and recommendations discussed with Emergency Department physician, Morteza Ashton M.D., at 2125 hours, on March 16, 2018. Final report concurs with initial preliminary interpretation. Head CT reviewed by me and discussed with Dr. Garcia is nonacute Chest x-ray interpreted by me is negative for pneumonia Procedures: IV normal saline, monitor ED Course/Re-evaluation: Re-evaluation at 9:25 p.m.. Patient is stable. He and I discussed imaging studies lab results. We discussed recommendation for hospital admission overnight. Patient agrees to admission I consulted discussed case with Dr. Cooley, hospitalist who agrees to the admission Differential Diagnosis: Syncopal episode without preceding symptoms. Considered a arrhythmia versus intracranial bleeding, electrolyte abnormalities, acute coronary syndrome. Is concerning that the patient lives alone and I think mandates overnight observation Patient has hyponatremia - Data Points Laboratory Results: Laboratory Results 03/16/18 20:30 03/16/18 20:30 03/16/18 03/16/18 03/16/18 20:54 20:30 20:30 WBC 6.30 10^3/uL 10^3/uL (3.80-9.50) RBC 4.05 10^6/uL L 10^6/uL (4.40-6.38) Hgb 13.4 g/dL L g/dL (13.7-17.5) Hct 37.5 % L % (40.0-51.0) MCV 92.6 fL fL (81.5-99.8) MCH 33.1 pg pg (27.9-34.1) MCHC 35.7 g/dL g/dL (32.4-36.7) RDW 14.0 % % (11.5-15.2) Plt Count 198 10^3/uL 10^3/uL (150-400) MPV 9.7 fL fL (8.7-11.7) Neut % (Auto) 34.5 % L % (39.3-74.2) Lymph % (Auto) 53.0 % H % (15.0-45.0) [place] % (Auto) 10.0 % % (4.5-13.0) Eos % (Auto) 1.9 % % (0.6-7.6) Baso % (Auto) 0.3 % % (0.3-1.7) Nucleat RBC Rel Count 0.0 % % (0.0-0.2) Absolute Neuts (auto) 2.17 10^3/uL 10^3/uL (1.70-6.50) Absolute Lymphs (auto) 3.34 10^3/uL H 10^3/uL (1.00-3.00) Absolute Monos (auto) 0.63 10^3/uL 10^3/uL (0.30-0.80) Absolute Eos (auto) 0.12 10^3/uL 10^3/uL (0.03-0.40) Absolute Basos (auto) 0.02 10^3/uL 10^3/uL (0.02-0.10) Absolute Nucleated RBC 0.00 10^3/uL 10^3/uL (0-0.01) Immature Gran % 0.3 % % (0.0-1.1) Immature Gran # 0.02 10^3/uL 10^3/uL (0.00-0.10) Sodium 128 mEq/L L mEq/L (135-145) Potassium 3.5 mEq/L mEq/L (3.3-5.0) Chloride 94 mEq/L L mEq/L (97-110) Carbon Dioxide 24 mEq/l mEq/l (22-31) Anion Gap 10 mEq/L mEq/L (8-16) BUN 10 mg/dL mg/dL (7-23) Creatinine 0.6 mg/dL L mg/dL (0.7-1.3) Estimated GFR > 60 Glucose 84 mg/dL mg/dL (70-100) Calcium 9.2 mg/dL mg/dL (8.5-10.4) POC Troponin I 0.00 ng/mL ng/mL (0.00-0.08) Medications Given: Discontinued Medications Sodium Chloride (Ns) 1,000 mls @ 0 mls/hr IV EDNOW ONE; Wide Open PRN Reason: Protocol Stop: 03/16/18 20:42 Last Admin: 03/16/18 20:55 Dose: 1,000 mls Point of Care Test Results: Chemistry 03/16/18 20:54 POC Troponin I 0.00 ng/mL ng/mL (0.00-0.08) Departure - Departure Disposition: [facility] Inpatient Acute Clinical Impression: Hyponatremia Syncope Qualifiers: Syncope type: unspecified Qualified Code(s): R55 - Syncope and collapse Condition: Fair Referrals: Patient,NotPresent [Unknown] - As per Instructions
[2018-03-16] MEDS ORDERED: NS 1,000 ML IV ONE (20:41)
--- NOTE | 2018-03-16 20:41 | CPEKG ---
Heart Rate: 57 RR Interval: 1053 P-R Interval: 228 QRSD Interval: 156 QT Interval: 508 QTC Interval: 495 P [place]: 35 QRS [place]: -50 T Wave [place]: 75 EKG Severity - ABNORMAL ECG - EKG Impression: SINUS RHYTHM EKG Impression: FIRST DEGREE AV BLOCK EKG Impression: LEFT BUNDLE BRANCH BLOCK Electronically Signed By: Morteza Ashton 16-Mar-2018 20:56:38
[2018-03-16 20:53] LABS: PLATELET COUNT 198 10^3/uL (150-400)
[2018-03-16] MEDS ORDERED: ONDANSETRON 4 MG/2 ML VIAL IVP PRN (22:14)
[2018-03-16] MEDS ORDERED: ONDANSETRON DISINTEGRATING 4 MG TAB PO PRN (22:14)
--- NOTE | 2018-03-16 23:16 | PDGENHP ---
History and Physical - Chief Complaint Syncope - History of Present Illness 77 yo M w/ minimal PMHx presents w/ syncope. Patient was dining alone at a restaurant in town and suffered a syncopal episode. He states just prior to the event he felt warm, flushed, and sweaty. During the episodes onlookers noted vomiting but no shaking; no post-ictal confusion was noted. He quickly returned to baseline mental status and currently has no complaints aside from a mild headache, which has been intermittently present since his mechanical fall in February. He denies any recent illness. 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 - Surgical History Additional surgical history: Bilateral inguinal hernia repair, 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 - Family History Positive for: non-pertinent Additional family history: No family history of end-stage renal disease, no family history of pituitary disorders - Social History Smoking Status: Never smoked Additional social history: Resides in a neighborhood of [place] in summer and winter, resides in [place] in spring and fall Review of Systems Review of Systems: ROS: 10pt was reviewed & negative except for what was stated in HPI & below Physical Exam Physical Exam: Temp Pulse Resp BP Pulse Ox 36.3 C 59 L 20 159/98 H 97 03/16/18 20:30 03/16/18 21:20 03/16/18 21:20 03/16/18 21:20 03/16/18 21:20 Constitutional: no apparent distress, not in pain Eyes: PERRL, EOMI Ears, Nose, Mouth, Throat: moist mucous membranes, no oral mucosal ulcers Cardiovascular: regular rate and rhythym, no murmur, rub, or gallop Respiratory: no respiratory distress, clear to auscultation Gastrointestinal: normoactive bowel sounds, soft, non-tender abdomen Skin: warm, normal color Musculoskeletal: other (RUE contracture @ wrist, 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) Neurologic: AAOx3, CN II-XII Intact Psychiatric: interacting appropriately, not anxious Lab Data & Imaging Review 03/16/18 20:30 03/16/18 20:30 WBC 6.30 10^3/uL (3.80-9.50) 03/16/18 20:30 RBC 4.05 10^6/uL (4.40-6.38) L 03/16/18 20:30 Hgb 13.4 g/dL (13.7-17.5) L 03/16/18 20:30 Hct 37.5 % (40.0-51.0) L 03/16/18 20:30 MCV 92.6 fL (81.5-99.8) 03/16/18 20:30 MCH 33.1 pg (27.9-34.1) 03/16/18 20:30 MCHC 35.7 g/dL (32.4-36.7) 03/16/18 20:30 RDW 14.0 % (11.5-15.2) 03/16/18 20:30 Plt Count 198 10^3/uL (150-400) 03/16/18 20:30 MPV 9.7 fL (8.7-11.7) 03/16/18 20:30 Neut % (Auto) 34.5 % (39.3-74.2) L 03/16/18 20:30 Lymph % (Auto) 53.0 % (15.0-45.0) H 03/16/18 20:30 [place] % (Auto) 10.0 % (4.5-13.0) 03/16/18 20:30 Eos % (Auto) 1.9 % (0.6-7.6) 03/16/18 20:30 Baso % (Auto) 0.3 % (0.3-1.7) 03/16/18 20:30 Nucleat RBC Rel Count 0.0 % (0.0-0.2) 03/16/18 20:30 Absolute Neuts (auto) 2.17 10^3/uL (1.70-6.50) 03/16/18 20:30 Absolute Lymphs (auto) 3.34 10^3/uL (1.00-3.00) H 03/16/18 20:30 Absolute Monos (auto) 0.63 10^3/uL (0.30-0.80) 03/16/18 20:30 Absolute Eos (auto) 0.12 10^3/uL (0.03-0.40) 03/16/18 20:30 Absolute Basos (auto) 0.02 10^3/uL (0.02-0.10) 03/16/18 20:30 Absolute Nucleated RBC 0.00 10^3/uL (0-0.01) 03/16/18 20:30 Immature Gran % 0.3 % (0.0-1.1) 03/16/18 20:30 Immature Gran # 0.02 10^3/uL (0.00-0.10) 03/16/18 20:30 Sodium 128 mEq/L (135-145) L 03/16/18 20:30 Potassium 3.5 mEq/L (3.3-5.0) 03/16/18 20:30 Chloride 94 mEq/L (97-110) L 03/16/18 20:30 Carbon Dioxide 24 mEq/l (22-31) 03/16/18 20:30 Anion Gap 10 mEq/L (8-16) 03/16/18 20:30 BUN 10 mg/dL (7-23) 03/16/18 20:30 Creatinine 0.6 mg/dL (0.7-1.3) L 03/16/18 20:30 Estimated GFR > 60 03/16/18 20:30 Glucose 84 mg/dL (70-100) 03/16/18 20:30 Serum Osmolality 267 mosmo/kg (280-297) L 03/16/18 20:30 Uric Acid 3.3 mg/dL (3.5-8.5) L 03/16/18 20:30 Calcium 9.2 mg/dL (8.5-10.4) 03/16/18 20:30 POC Troponin I 0.00 ng/mL (0.00-0.08) 03/16/18 20:54 Imaging Review: Imaging Impressions Chest X-Ray 03/16/18 20:51 Impression: 1. No pneumothorax 2. Consider chest two views when the patient's medical condition permits. Head CT 03/16/18 20:51 Impression: 1. Mild atrophy. 2. No acute hemorrhage, hydrocephalus, or mass effect. 3. Cerebrovascular atherosclerosis. 4. No definite acute infarct. 5. Moderate microvascular ischemic gliosis. 6. Left frontal scalp swelling. 7. No epidural or subdural hematoma. Findings and recommendations discussed with Emergency Department physician, Morteza Ashton M.D., at 2125 hours, on March 16, 2018. Final report concurs with initial preliminary interpretation. Visualized and Interpreted Chest x-ray results: Yes Chest X-Ray results: no infiltrate Visualized and Interpreted EKG results: Yes EKG Interpretation: Positive for: normal sinsus rhythm, other (1st degree AV block, LBBB, unchanged from prior) Assessment & Plan Assessment: 77 yo M w/ minimal PMHx presents w/ syncopal episode and sub-acute hyponatremia. Plan: 1. Syncope - Very consistent with vasovagal syncope as patient felt warm, flushed, and diaphoretic just prior to the event. Work-up in the ED unremarkable for additional etiologies; CTH with no acute findings. - Admit overnight for observation - Monitor on telemetry - PT/OT evaluations 2. Sub-acute hyponatremia - This was initially noted during most recent admission in February. He was discharged with a serum sodium of 131 on 02/23. Etiology at that time was thought to be hypovolemia, but chronicity hints at possible SIADH as well, possibly from SSRI vs recent head trauma. - Low uric acid consistent with SIADH - Continue 1.5 L fluid restriction - S/p 1L NS IVF in the ED - Recheck urine lytes and serum/urine Osms - Monitor BMP - Consider d/c of SSRI, but this can probably be decided on an outpatient basis 3. Depression - On fluoxetine as an outpatient. Diet - Regular Code - Full Ppx - SCDs Dispo - Admit under observation status
[2018-03-16] MEDS: ACETAMINOPHEN 325 MG TAB PO PRN (23:55)
[2018-03-17 04:46] LABS: PLATELET COUNT 171 10^3/uL (150-400)
[2018-03-17] MEDS: ACETAMINOPHEN 325 MG TAB PO PRN (09:24)
[2018-03-17 12:23] VITALS: BP 152/89
--- NOTE | 2018-03-17 13:24 | HOSPPROG ---
Hospitalist Progress Note Assessment/Plan: 77 yo M w vasovagal syncope home today see dc summary Subjective: no events tele Objective: Vital Signs Temp Pulse Resp BP Pulse Ox 36.8 C 64 16 152/89 H 94 03/17/18 12:00 03/17/18 12:00 03/17/18 12:00 03/17/18 12:00 03/17/18 12:00 Laboratory Results 03/17/18 03:39 03/17/18 03:39 03/16/18 03/17/18 03/18/18 05:59 05:59 05:59 Intake Total 1250 Output Total 200 Balance 1050 - Physical Exam Constitutional: no apparent distress, appears nourished Eyes: PERRL, anicteric sclera Ears, Nose, Mouth, Throat: moist mucous membranes, hearing normal Cardiovascular: regular rate and rhythym, no murmur, rub, or gallop Respiratory: no respiratory distress, no rales or rhonchi Gastrointestinal: normoactive bowel sounds, soft, non-tender abdomen Genitourinary: no bladder fullness Skin: warm, normal color Musculoskeletal: full muscle strength, no muscle tenderness Neurologic: AAOx3 ICD10 Worksheet Patient Problems: Problems Problem Status Onset Hyponatremia Acute Syncope Acute Forehead abrasion Acute Forehead laceration Acute Frontal head injury Acute Periorbital edema of left eye Acute
--- NOTE | 2018-03-17 13:46 | ASDISCHSUM ---
Discharge Information Plan Status:Home with No Needs Medically Cleared to Leave:03/17/2018 Discharge Date:03/17/2018 CM D/C Disposition:Home, Routine, Self-Care ADT D/C Disposition: Projected Discharge Date:03/17/2018 Transportation at D/C:Family Discharge Delay Reason: Follow-Up Date:03/17/2018 Discharge Slot: Final Diagnosis: Placement Information Patient Contact Information Contact Name:DENNY Relationship: Address: Home Phone: Work Phone: City: Alternate Phone: State/[employer] Code: Email: Financial Information Financial Class:HMO and PPO Plans Primary Plan Desc:[employer] Primary Plan Number:[id number] Secondary Plan Desc: Secondary Plan Number: Assessment Information LACE LACE Length of stay for Answers: Less than 1 day current admission Acuity / Level of Answers: No Care: Did the patient have an inpatient admission? Comorbidities - select Answers: Other Notes: dyspepsia, hyperlipidem ia, all that apply BPPV # of Emergency department Answers: 3-4 visits in the last 6 months Social determinants Answers: Mental health diagnosis (anxiety, depression, pers onality disorders, etc.) Score: 7 Date Signed: 03/17/2018 01:45 PM Electronically Signed By:Iman Alfaro RN Intervention Information
--- NOTE | 2018-03-17 19:58 | GDS ---
[f rep st] DISCHARGE SUMMARY DISCHARGE DIAGNOSIS: Vasovagal syncope. Please see admission History and Physical by Dr. Antoine Cee. The patient presented with an episode of syncope, which was preceded by eating a meal, becoming flushed. He had vomiting and urin marycruz incontinence. He had an EKG demonstrating a known left bundle branch block that was nonischemic. He had a chest x-ray that was unremarkable. He had an unremarkable noncontrast head CT. He had hy ponatremia at baseline. He had no events on telemetry. He does have a prolonged QT that is not new. He takes fluoxetine at a low dose. He is not on any beta blockers or other agents. Marlene singh is quite anxious for discharge, and he is discharged home. /[id number]/MODL
== END 2018-03-17 15:25 | disposition home or self-care (01) ==
LOC: EDUNIT# → INTOOBSV 21:51 → F2W 23:30
PROVIDERS: ADMIT Internal Medicine; ATTEND Internal Medicine
DX: R55 Syncope and collapse (principal); E87.1 Hypo-osmolality and hyponatremia; E86.9 Volume depletion, unspecified; R51 Headache; I44.7 Left bundle-branch block, unspecified; E78.5 Hyperlipidemia, unspecified; K21.9 Gastro-esophageal reflux disease without esophagitis; H81.11 Benign paroxysmal vertigo, right ear; F32.9 Major depressive disorder, single episode, unspecified
CPT/HCPCS: 84484-PO; G0378

== ENCOUNTER 2018-03-18 19:21 | Inpatient (IN) | payer SELFPAY ==
--- NOTE | 2018-03-18 19:31 | CPEKG ---
Heart Rate: 56 RR Interval: 1071 P-R Interval: 228 QRSD Interval: 152 QT Interval: 520 QTC Interval: 502 P [place]: 35 QRS [place]: -56 T Wave [place]: 70 EKG Severity - ABNORMAL ECG - EKG Impression: SINUS RHYTHM EKG Impression: FIRST DEGREE AV BLOCK EKG Impression: PROBABLE LEFT ATRIAL ABNORMALITY EKG Impression: LEFT BUNDLE BRANCH BLOCK Electronically Signed By: Morteza Ashton 18-Mar-2018 21:34:45
--- NOTE | 2018-03-18 19:40 | EDPHY ---
H & P Time Seen by Provider: 03/18/18 19:22 HPI/ROS: Chief complaint. Dizziness HPI. 77-year-old male presents by EMS with lightheadedness and feels like he might fall over. He feels shaky. No chest pain or shortness of breath or abdominal pain. Discharge yesterday after having a syncopal episode. It has been hot so he has been drinking a lot a water. He has been urinating frequently. Symptoms just began this afternoon. No headache. No change in vision ROS Constitutional. no fever/chills, no weakness Eyes. no problems with vision ENT. no sore throat, no nasal drainage Cardiovascular. no chest pain Respiratory. no shortness of breath, no cough Abdominal. no abdominal pain, no nausea/vomiting, no diarrhea . no problems urinating MS. no calf pain/swelling, no neck/back pain, no joint pain Skin. no rash Lymph. no swollen glands Neuro. Shaky and lightheaded and off balance Past Medical/Surgical History: Past medical history appendectomy, cholecystectomy, GERD, vertigo, depression Social History: Single, nonsmoker, no alcohol Smoking Status: Never smoked Physical Exam: General Appearance: Alert well-developed male mild distress vital signs show the patient be somewhat high for sensitive Eyes: Pupils equal and round no pallor or injection. ENT, Mouth: Mucous membranes are moist. Respiratory: There are no retractions, lungs are clear to auscultation. Cardiovascular: Regular rate and rhythm. Gastrointestinal: Abdomen is soft and nontender, no masses, bowel sounds normal. Neurological: Awake and alert, sensory and motor exams grossly normal. Skin: Warm and dry, no rashes. Musculoskeletal: Neck is supple nontender. Extremities symmetrical, full range of motion. Psychiatric: Patient is oriented X 3, there is no agitation. Constitutional: Initial Vital Signs Temperature (C) 36.8 C 03/18/18 19:21 Heart Rate 55 L 03/18/18 19:21 Respiratory Rate 22 H 03/18/18 19:21 Blood Pressure 161/130 H 03/18/18 19:21 O2 Sat (%) 96 03/18/18 19:21 O2 Delivery Mode Room Air Allergies/Adverse Reactions: No Known Allergies Allergy (Unverified 03/16/18 20:32) Home Medications: Medication Instructions Recorded FLUoxetine [Prozac 10 MG (*)] 10 mg PO DAILY 02/20/18 Omeprazole 20 mg PO DAILY 02/20/18 Simvastatin 10 mg PO HS 02/20/18 Acetaminophen [Tylenol 325mg (*)] 325 - 650 mg PO Q6 PRN 03/16/18 Medical Decision Making - Diagnostics EKG Interpretation: EKG interpreted by me shows a left bundle branch block with sinus rhythm. First -degree AV block. Left axis deviation with a left bundle branch block. Interventricular conduction delay. No significant ST elevation or depression. No a arrhythmia. The rate is 56 Procedures: The IV, monitor ED Course/Re-evaluation: Patient is found to have significant hyponatremia and so he is not given any fluids. The patient and I discussed laboratory evaluation, treatment plan including recommendation for admission. He expresses understanding and agreement I consulted discussed case with Dr. Basilio, hospitalist, who agrees to the admission Differential Diagnosis: I considered electrolyte abnormalities, acute coronary syndrome, cardiac arrhythmia - Data Points Laboratory Results: Laboratory Results 03/18/18 19:30 03/18/18 19:30 03/18/18 03/18/18 19:30 19:30 WBC 5.12 10^3/uL 10^3/uL (3.80-9.50) RBC 3.72 10^6/uL L 10^6/uL (4.40-6.38) Hgb 12.3 g/dL L g/dL (13.7-17.5) Hct 34.3 % L % (40.0-51.0) MCV 92.2 fL fL (81.5-99.8) MCH 33.1 pg pg (27.9-34.1) MCHC 35.9 g/dL g/dL (32.4-36.7) RDW 13.7 % % (11.5-15.2) Plt Count 172 10^3/uL 10^3/uL (150-400) MPV 9.9 fL fL (8.7-11.7) Neut % (Auto) 40.9 % % (39.3-74.2) Lymph % (Auto) 44.9 % % (15.0-45.0) Dixon % (Auto) 11.3 % % (4.5-13.0) Eos % (Auto) 2.1 % % (0.6-7.6) Baso % (Auto) 0.6 % % (0.3-1.7) Nucleat RBC Rel Count 0.0 % % (0.0-0.2) Absolute Neuts (auto) 2.09 10^3/uL 10^3/uL (1.70-6.50) Absolute Lymphs (auto) 2.30 10^3/uL 10^3/uL (1.00-3.00) Absolute Monos (auto) 0.58 10^3/uL 10^3/uL (0.30-0.80) Absolute Eos (auto) 0.11 10^3/uL 10^3/uL (0.03-0.40) Absolute Basos (auto) 0.03 10^3/uL 10^3/uL (0.02-0.10) Absolute Nucleated RBC 0.00 10^3/uL 10^3/uL (0-0.01) Immature Gran % 0.2 % % (0.0-1.1) Immature Gran # 0.01 10^3/uL 10^3/uL (0.00-0.10) Sodium 117 mEq/L L* mEq/L (135-145) Potassium 3.8 mEq/L mEq/L (3.3-5.0) Chloride 83 mEq/L L mEq/L (97-110) Carbon Dioxide 23 mEq/l mEq/l (22-31) Anion Gap 11 mEq/L mEq/L (8-16) BUN 9 mg/dL mg/dL (7-23) Creatinine 0.6 mg/dL L mg/dL (0.7-1.3) Estimated GFR > 60 Glucose 87 mg/dL mg/dL (70-100) Calcium 8.4 mg/dL L mg/dL (8.5-10.4) Medications Given: Discontinued Medications Sodium Chloride (Ns) 1,000 mls @ 0 mls/hr IV EDNOW ONE; Wide Open PRN Reason: Protocol Stop: 03/18/18 19:55 Last Admin: 03/18/18 20:18 Dose: Not Given Departure - Departure Disposition: [facility] In[facility] Acute Clinical Impression: Hyponatremia Condition: Fair Referrals: Patient,NotPresent [Unknown] - As per Instructions
[2018-03-18] MEDS ORDERED: NS 1,000 ML IV ONE (19:54)
[2018-03-18 20:04] LABS: PLATELET COUNT 172 10^3/uL (150-400)
[2018-03-18] MEDS ORDERED: ONDANSETRON 4 MG/2 ML VIAL IVP PRN (22:32)
[2018-03-18] MEDS ORDERED: ACETAMINOPHEN 325 MG TAB PO PRN (22:32)
[2018-03-18] MEDS ORDERED: ONDANSETRON DISINTEGRATING 4 MG TAB PO PRN (22:32)
--- NOTE | 2018-03-19 01:25 | GCON ---
[f rep st] CONSULTATION NEPHROLOGY CONSULTATION DATE OF CONSULTATION: 03/18/2018 REASON FOR CONSULTATION: Mental status changes due to acute severe hyponatremia. HISTORY OF PRESENT ILLNESS: This is a pleasant 77-year-old male, [place] of [place], who devlin in [facility], who now presents with symptoms of instability and lightheadedness. At this time, the patient is a good historian. The medical record is also obtained from the medical staff and the medical raul rd. The patient's recent medical history began in February of this year. At that time, the patient had a fall and presented with a facial and head trauma. He does note that he feels he has some residual c ognitive issues or disequilibrium relating to that admission. At the time of that admission, he pres ented with a sodium level of 124. He gradually corrected, to 131 prior to discharge. A U osm perfor med during that admission was quite dilute was relatively dilute at 155. The etiology of the hyponat remia was believed to be potentially related to his SSRI or his trauma. The patient had a repeat admission 2 days ago. At that time, he presented status post a syncopal epi sode at a restaurant. It was a very brief episode and was witnessed. There was no postictal confusi on. He quickly returned to a normal mental status. Of note, his sodium level was 128 on admission. It increased to 134 yesterday at the time of discharge. The patient states he did drink a lot of water over the course of today. He then began having feelin gs of instability, and now his sodium level is 117. He was given some fluid in the emergency room, a nd his sodium on recheck was 120. His mental status is clearing. He is lying down and not attemptin g to walk, however. He is slightly hypertensive at 153/88. The patient has previously had thyroid s tudies performed, which looked normal. He remains on his SSRI. As related to the above issues, we a re asked by the hospitalist service to assist the patient's renal diagnosis and management. PAST MEDICAL HISTORY: 1. Head trauma in February with possible concussion. 2. Depression. 3. Hyperlipidemia. 4. Dyspepsia. 5. BPPV. 6. 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 SURGICAL HISTORY: Includes: 1. Bilateral inguinal hernia repair. 2. Right hand surgery. 3. Retinal tear repair. ALLERGIES: No known drug allergies. HOME MEDICATIONS: Simvastatin 10 mg daily, omeprazole 20 mg daily, fluoxetine 10 mg daily, Tylenol p .r.n. SOCIAL HISTORY: The patient typically lives in [place]. He devlin here. He has worked in heading a research group. He does not presently smoke cigarettes or drink alcohol. REVIEW OF SYSTEMS: GENERAL: He denies fevers, chills, or sweats. He has the aforementioned disequi librium. He currently has a headache. He denies visual disturbances. He has allergic rhinitis. He denies odynophagia. He denies cough, shortness of breath, chest pain, or palpitations. He denies a bdominal pain or constipation. He occasionally has loose stools. He does have urinary frequency. H e denies lower extremity edema. He does have a rash on his thigh. He denies history of diabetes or thyroid disease. PHYSICAL EXAM: GENERAL: At time of exam, the patient is appropriate and alert. VITAL SIGNS: Fisher rature 36.7, pulse 120, blood pressure 153/88. EYES: Sclerae clear. OROPHARYNX: Clear. NECK: No lymphadenopathy or thyromegaly. LUNGS: Clear to auscultation bilaterally. CARDIOVASCULAR: Regula r rate and rhythm without gallops or rubs. The patient's heart rate is no longer 120. ABDOMEN: Nor moactive bowel sounds. Nontender. No organomegaly. /RECTAL: Deferred. EXTREMITIES: No lower e xtremity edema. INTEGUMENT: The patient does have a probable yeast rash on the anterior portion of his right thigh. NEURO: No focal findings. LABORATORY STUDIES: Urinalysis: Actually we do not have one for today. Troponin normal. Sodium 12 0, potassium 3.3, chloride 82, creatinine 0.6. White count 5.2, hemoglobin 13.3, platelets 172. IMPRESSION AND PLAN: 1. Severe symptomatic hyponatremia. The patient's sodium levels on 03/16 were 128; on 03/17, 134; a nd currently are 120, up from 117. We have clear documentation of an acute drop. The patient has 2 previous urine osmolalities performed from 2 different admissions, and both showed dilute urine. The patient appears to have significant polydipsia and likely relatively low solute intake. I do believ e that in light of his polydipsia, trying to slow him with DDAVP would be risky. Given the acuity th at is clearly documented by our labs, I believe it is appropriate to allow him to correct briskly. W e will limit him to a 1500 mL fluid restriction, and allow him to correct. We will check a urine osm olality. If it is elevated, then I would strongly recommend stopping his selective serotonin reuptak e inhibitor. When the patient is discharged, we should consider a permanent fluid restriction or add itional osmolytes in the form of urea therapy. 2. Syncope. The patient did have syncope recently. I am unsure of the etiology of this. He is pre sently on telemetry. We will monitor. 3. Hypokalemia. This will be replaced. I am not sure why he has the profound hypokalemia. If we d o have ongoing questions or concerns relating to his laboratory findings, further studies will need t o be performed. Thank you for letting us participate in this gentleman's care. Will continue to follow him closely fredy roberts. /[id number]/MODL
--- NOTE | 2018-03-19 02:03 | PDGENHP ---
History and Physical - Chief Complaint Confusoin, lightheadedness - History of Present Illness 77 yo M w/ hx of hyponatremia presents with confusion and lightheadedness. He was discharged from the hospital 1 day ago after observation for vasovagal syncope and ongoing hyponatremia. Today he tells me it was hot so he drank a lot of water. He then became confused and lightheaded so he returned to the ED. In the ED his serum sodium was 117. This improved to 120 after 1 L NS. At the time of my evaluation patient denies any complaints. 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 - Surgical History Additional surgical history: Bilateral inguinal hernia repair, 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 - Family History Positive for: non-pertinent Additional family history: No family history of end-stage renal disease, no family history of pituitary disorders - Social History Smoking Status: Never smoked Additional social history: Resides in a neighborhood of [place] in summer and winter, resides in [place] in spring and fall Review of Systems Review of Systems: ROS: 10pt was reviewed & negative except for what was stated in HPI & below Physical Exam Physical Exam: Temp Pulse Resp BP Pulse Ox 36.7 C 120 H 16 153/88 H 97 03/18/18 22:27 03/18/18 22:27 03/18/18 22:27 03/18/18 22:27 03/18/18 22:27 Constitutional: no apparent distress, not in pain Eyes: PERRL, EOMI, other (Healing radha-orbital trauma) Ears, Nose, Mouth, Throat: moist mucous membranes, no oral mucosal ulcers Cardiovascular: regular rate and rhythym, no murmur, rub, or gallop Respiratory: no respiratory distress, clear to auscultation Gastrointestinal: normoactive bowel sounds, soft, non-tender abdomen Skin: warm, normal color Musculoskeletal: full muscle strength, no muscle tenderness Neurologic: CN II-XII Intact, other (A&Ox2) Psychiatric: interacting appropriately, not anxious Lab Data & Imaging Review 03/18/18 19:30 03/18/18 23:25 WBC 5.12 10^3/uL (3.80-9.50) 03/18/18 19:30 RBC 3.72 10^6/uL (4.40-6.38) L 03/18/18 19:30 Hgb 12.3 g/dL (13.7-17.5) L 03/18/18 19: POC Hgb 13.3 gm/dL (13.7-17.5) L 03/18/18 21:53 Hct 34.3 % (40.0-51.0) L 03/18/18 19: POC Hct 39 % (40-51) L 03/18/18 21:53 MCV 92.2 fL (81.5-99.8) 03/18/18 19:30 MCH 33.1 pg (27.9-34.1) 03/18/18 19: MCHC 35.9 g/dL (32.4-36.7) 03/18/18 19:30 RDW 13.7 % (11.5-15.2) 03/18/18 19:30 Plt Count 172 10^3/uL (150-400) 03/18/18 19:30 MPV 9.9 fL (8.7-11.7) 03/18/18 19:30 Neut % (Auto) 40.9 % (39.3-74.2) 03/18/18 19:30 Lymph % (Auto) 44.9 % (15.0-45.0) 03/18/18:30 Henry % (Auto) 11.3 % (4.5-13.0) 03/18/18 19:30 Eos % (Auto) 2.1 % (0.6-7.6) 03/18/18: Baso % (Auto) 0.6 % (0.3-1.7) 03/18/18 19:30 Nucleat RBC Rel Count 0.0 % (0.0-0.2) 03/18/18 19:30 Absolute Neuts (auto) 2.09 10^3/uL (1.70-6.50) 03/18/18 19:30 Absolute Lymphs (auto) 2.30 10^3/uL (1.00-3.00) 03/18/18 19:30 Absolute Monos (auto) 0.58 10^3/uL (0.30-0.80) 03/18/18 19:30 Absolute Eos (auto) 0.11 10^3/uL (0.03-0.40) 03/18/18:30 Absolute Basos (auto) 0.03 10^3/uL (0.02-0.10) 03/18/18 19:30 Absolute Nucleated RBC 0.00 10^3/uL (0-0.01) 03/18/18 19: Immature Gran % 0.2 % (0.0-1.1) 03/18/18 19:30 Immature Gran # 0.01 10^3/uL (0.00-0.10) 03/18/18 19:30 POC Sodium 120 mEq/L (135-145) L 03/18/18 21:53 Sodium 122 mEq/L (135-145) L 03/18/18 23:25 POC Potassium 3.3 mEq/L (3.3-5.0) 03/18/18 21:53 Potassium 3.2 mEq/L (3.3-5.0) L 03/18/18 23:25 POC Chloride 82 mEq/L (97-110) L 03/18/18 21:53 Chloride 87 mEq/L (97-110) L 03/18/18 23:25 Carbon Dioxide 25 mEq/l (22-31) 03/18/18 23:25 Anion Gap 10 mEq/L (8-16) 03/18/18 23:25 POC BUN 8 mg/dL (7-23) 03/18/18 21:53 BUN 9 mg/dL (7-23) 03/18/18 23:25 Creatinine 0.6 mg/dL (0.7-1.3) L 03/18/18 23:25 POC Creatinine 0.6 mg/dL (0.7-1.3) L 03/18/18 21:53 Estimated GFR > 60 03/18/18 23:25 Glucose 99 mg/dL (70-100) 03/18/18 23:25 POC Glucose 86 mg/dL (70-100) 03/18/18 21:53 Serum Osmolality 255 mosmo/kg (280-297) L 03/18/18 23:25 Calcium 8.5 mg/dL (8.5-10.4) 03/18/18 23:25 Troponin I < 0.012 ng/mL (0.000-0.034) 03/18/18 22:06 Urine Osmolality 106 mosmo/kg (300-900) L 03/18/18 23:55 Visualized and Interpreted EKG results: Yes EKG Interpretation: Positive for: normal sinsus rhythm, other (LBBB) Assessment & Plan Assessment: 77 yo M p/w acute on chronic hyponatremia. Plan: 1. Acute on chronic hyponatremia - Patient presents with lightheadedness and mild confusion due to serum Na of 117. Serum Na was 134 on discharge shen day prior. These symptoms are now improving as his serum sodium rises; 122 on last check. Etiology of acute drop likely polydipsia whereas etiology of chronic hyponatremia remains unclear. - Admit for observation - Will reinstate 1.5 L fluid restriction - Renal service consulted, appreciate assistance - Discussed case with Dr. Lawrence, who agrees with fluid restriction and monitoring of BMP 2. Hypokalemia - Replete PRN Diet - Regular Code - Full Ppx - LMWH Dispo - Admit under observation status
[2018-03-19] MEDS ORDERED: POTASSIUM CL 20 MEQ TAB PO ONE (02:08)
[2018-03-19 08:36] LABS: PLATELET COUNT 88 10^3/uL (150-400)
[2018-03-19] MEDS ORDERED: ENOXAPARIN 40 MG/0.4 ML SYR SC SCH (09:00)
--- NOTE | 2018-03-19 10:54 | SOAPPROG ---
SOAP Progress Note Assessment/Plan: Assessment: hyponatremia with appropriate renal osmolality looks to have hyponatremia due to inadequate solute intake, or the, "tea and toast diet" Plan: needs to consume more solute I've suggested more protein if he won't consume more solute, he needs to be on salt tabs, say 1G BID or TID 03/19/18 10:50 Subjective: Feels fine, wants to go home today concerned about gaining weight if he eats more food denies CP sob nausea or vomiting spirits good understands why he keeps getting hyponatremic Objective: Vital Signs Temp Pulse Resp BP Pulse Ox 36.5 C 63 14 148/81 H 95 03/19/18 07:38 03/19/18 07:38 03/19/18 07:38 03/19/18 07:38 03/19/18 07:38 Laboratory Results 03/19/18 07:23 03/19/18 07:23 03/18/18 03/19/18 03/20/18 05:59 05:59 05:59 Intake Total 0 Output Total 1375 250 Balance -1375 -250 Physical Exam - Physical Exam General Appearance: alert, thin Respiratory: lungs clear, No rales, No rhonchi, No wheezing Cardiac/Chest: regular rate, rhythm, No edema, No friction rub Abdomen: normal bowel sounds, non-tender, soft Skin: warm/dry Extremities: No pedal edema, No swelling Neuro/Psych: alert, normal mood/affect, oriented x 3 ICD10 Worksheet Patient Problems: Problems Problem Status Onset Hyponatremia Acute Forehead abrasion Acute Forehead laceration Acute Frontal head injury Acute Periorbital edema of left eye Acute Syncope Acute
--- NOTE | 2018-03-19 11:37 | ASMTCMCOM ---
CM Note CM Note Notes: 03/18/2018 Case Management Note Reviewed pt during rounds. Pt recently d/c on 03/16. Pt admitted for hyponatremia. [place] and spends his devlin here in [place]. Pt insurance has lapsed leaving pt uninsured. Case Management d/c poc: home independent Case Management available if needs change. Date Signed: 03/19/2018 11:36 AM Electronically Signed By:Iman Alfaro RN
[2018-03-19] MEDS ORDERED: FLUoxetine 10 MG CAP PO SCH (12:30)
[2018-03-19] MEDS ORDERED: PANTOPRAZOLE SODIUM 40 MG TAB PO SCH (12:45)
--- NOTE | 2018-03-19 14:45 | HOSPPROG ---
Hospitalist Progress Note Assessment/Plan: 77 yo M w acute hyponatremia hyponatremia: this is low solute intake plus water intoxication Uosm 102 so OK to continue SSRI fluid restrict follow bid syncope: no events on tele neg trop. ekg non ischemic (interp by me) falls: had admit for fall 02/23 concerning for falls related to hyponatremia pt/ot evals hypokalemia: repleted dispo: inpatient pt/ot eval Subjective: case d/w dr arboleda Objective: Vital Signs Temp Pulse Resp BP Pulse Ox 36.7 C 66 12 158/93 H 96 03/19/18 11:28 03/19/18 11:28 03/19/18 11:28 03/19/18 11:28 03/19/18 11:28 Laboratory Results 03/19/18 07:23 03/19/18 07:23 03/18/18 03/19/18 03/20/18 05:59 05:59 05:59 Intake Total 0 Output Total 1375 250 Balance -1375 -250 - Physical Exam Constitutional: no apparent distress, appears nourished Eyes: PERRL, anicteric sclera Ears, Nose, Mouth, Throat: moist mucous membranes, hearing normal Cardiovascular: regular rate and rhythym, no murmur, rub, or gallop Respiratory: no respiratory distress, no rales or rhonchi Gastrointestinal: normoactive bowel sounds, soft, non-tender abdomen Genitourinary: no bladder fullness, No perdomo in urethra Skin: warm, normal color Musculoskeletal: full muscle strength Neurologic: AAOx3 Psychiatric: interacting appropriately, not anxious Lymph, Heme, Immunologic: no cervical LAD ICD10 Worksheet Patient Problems: Problems Problem Status Onset Hyponatremia Acute Forehead abrasion Acute Forehead laceration Acute Frontal head injury Acute Periorbital edema of left eye Acute Syncope Acute
--- NOTE | 2018-03-19 15:24 | PDMN ---
Medical Necessity Medical necessity: MCG: [facility]_ hypernatremia persistent NA 117 , 120,127 , with syncope and concerns for future falls, PT/OT evals , GI consult - ongoing med nec care needed > 2 midnights status changed 03/19/18 @ 14 :55 to INPT
[2018-03-19] MEDS: SODIUM CHLORIDE 1,000 MG TAB PO SCH ×2 (16:57→18:46)
[2018-03-19] MEDS ORDERED: PRAVASTATIN SODIUM 20 MG TAB PO SCH (21:00)
[2018-03-19 23:24] VITALS: BP 167/89
--- NOTE | 2018-03-20 22:30 | GDS ---
[f rep st] DISCHARGE SUMMARY DISCHARGE DIAGNOSES: Hyponatremia resolved. HISTORY: For details please see history and physical dated March 19, 2018. In brief, the patient is a 77-year-old male who [place] from the [place], but spends part of his year in [place] [facility]. HOSPITAL COURSE: Patient was admitted to the progressive care unit. His sodium on presentation was 117. This was thought to be related to hypovolemia and poor solute intake. He was slowly corrected, and on the day of discharge, his sodium was up to 132. His symptoms have resolved. He is ambulatin g safely. Therapy evaluation has deemed him safe to discharge home. DISPOSITION: Patient was discharged home in stable condition. FOLLOWUP: Patient is to follow up with Dr. Washburn's office in 2-3 days to recheck a basic metaboli c panel. I also recommend he obtain a primary care physician since he spends half the year in [facility]. DISCHARGE MEDICATIONS: Please see [facility] for completed outpatient medication list. New medication s on discharge include salt tablets 1 g p.o. b.i.d. #60, no refills. /[id number]/MODL
--- NOTE | 2018-03-21 14:58 | SOAPPROG ---
[facility] Patient Name: JANINE VERA Rpt#: [id number] Unit Number: [id number] Attending/ER Physician: Janine Basilio MD Patient Type: ADM IN Adm Date/Source: 03/19/18 EMR Discharge Date: Primary Carrier: SELF PAY SOAP NOTE SOAP Progress Note Assessment/Plan: Assessment: hyponatremia with appropriate urine osmolality looks to have hyponatremia due to inadequate solute intake, or the, "tea and toast diet" Plan: needs to consume more solute I've suggested more protein if he won't consume more solute, he needs to be on salt tabs, say 1G BID OK for dismissal today will need follow up labs in 2 days and 1 week to make sure sodium continues to be reasonable. No renal follow up necessary 03/19/18 10:50 03/20/18 08:44 Subjective: feels well wants to go home, I think that is fine no cp sob nausea vomiting or anorexia spirits good slept OK, energy is OK as well Objective: Vital Signs Temp Pulse Resp BP Pulse Ox 36.8 C 73 18 142/83 H 92 03/20/18 08:18 03/20/18 08:18 03/20/18 08:18 03/20/18 08:18 03/20/18 08:18 Laboratory Results 03/20/18 03:26 03/19/18 03/20/18 03/21/18 05:59 05:59 05:59 Intake Total 900 Balance 900 Physical Exam - Physical Exam General Appearance: alert, thin Neck: supple Respiratory: No rhonchi, No wheezing, No pleural rub Cardiac/Chest: regular rate, rhythm, No edema, No friction rub Abdomen: normal bowel sounds, non-tender, soft Extremities: No pedal edema Neuro/Psych: alert, normal mood/affect, oriented x 3 ICD10 Worksheet Patient Problems: Problems Problem Status Onset Hyponatremia Acute Forehead abrasion Acute Forehead laceration Acute Frontal head injury Acute Periorbital edema of left eye Acute Syncope Acute *This report may have been compiled using a voice recognition system, and might contain typographical errors and blanks.* Edison Washburn MD 03/20/18 0848 <Electronically signed by Edison Washburn MD> 3 T: [email or web address] 03/20/18843 CC:
--- NOTE | 2018-03-21 14:59 | ASDISCHSUM ---
[facility] Case Management CM Discharge Summary Patient Name: JANINE VERA Rpt#: [id number] MR#: [id number] Attending: Janine Basilio MD Adm Date: 03/19/18 Discharge Information Plan Status: Home with No Needs Medically Cleared to Leave: 03/20/2018 Discharge Date: 03/20/2018 CM D/C Disposition: Home, Routine, Self- Care ADT D/C Disposition: Home, Routine, Self-Care Projected Discharge Date: 03/20/2018 Transportation at D/C: Discharge Delay Reason: Follow-Up Date: 03/20/2018 Discharge Slot: Final Diagnosis: Placement Information Patient Contact Information Contact Name: ZHAO Relationship: Friend Address: [address] Work Phone: City: [place] [facility] Phone: [facility]/Zip Code: [place] [address] Email: Financial Information Financial Class: Self-Pay Primary Plan Desc: SELF PAY Primary Plan Number: Secondary Plan Desc: Secondary Plan Number: Assessment Information LACE LACE Length of stay for Answers: Less than 1 day current admission Comorbidities - select Answers: Other Notes: dyspepsia, hyperlipidemia, all that apply BPPV, hyponatremia # of Emergency department Answers: 3-4 visits in the last 6 months Social determinants Answers: Mental health diagnosis (anxiety, depression, pers onality disorders, etc.) Score: 7 Date Signed: 03/20/2018 10:12 AM Electronically Signed By: Iman Alfaro RN [facility] CM Progress Note CM Note CM Note Notes: 03/18/2018 Case Management Note Reviewed pt during rounds. Pt recently d/c on 03/16. Pt admitted for hyponatremia. Pt [place] in the [place] and spends his dev[place] here in [place]. Pt insurance has lapsed leaving pt uninsured. Case Management d/c poc: home independent Case Management available if needs change. Date Signed: 03/19/2018 11:36 AM Electronically Signed By: Iman Alfaro RN Case Management Discharge Plan Note Case Management Discharge Discharge Order Complete? Answers: Yes Patient to Obtain Answers: Independently Medications Discharge Comments Notes: 03/20/2018 Case Management Note Pt to discharge independent with follow up as directed. Date Signed: 03/20/2018 10:14 AM Electronically Signed By: Iman Alfaro RN Intervention Information
--- NOTE | 2018-03-21 14:59 | ASMTLACE ---
[facility] Case Management CM LACE Assessment Patient Name: JANINE VERA Rpt#: [id number] MR#: [id number] Attending: Janine Basilio MD Adm Date: 03/19/18 LACE Length of stay for Answers: Less than 1 day current admission Comorbidities - select Answers: Other Notes: dyspepsia, hyperlipidemia, all that apply BPPV, hyponatremia # of Emergency department Answers: 3-4 visits in the last 6 months Social determinants Answers: Mental health diagnosis (anxiety, depression, pers onality disorders, etc.) Score: 7 Date Signed: 03/20/2018 10:12 AM Electronically Signed By: Iman Alfaro RN
== END 2018-03-20 10:05 | disposition home or self-care (01) | DRG 641 ==
LOC: EDUNIT# → F2W 21:50 → OBSVTOIN 03-19 14:55
PROVIDERS: ADMIT Internal Medicine; ATTEND Internal Medicine Nephrology
DX: E87.1 Hypo-osmolality and hyponatremia (principal); E87.6 Hypokalemia; K21.9 Gastro-esophageal reflux disease without esophagitis
CPT/HCPCS: 82435-PO; 82565-PO; 82947-PO; 84132-PO; 84295-PO; 84484-PO; 84520-PO; 85014-PO; 97161-GP; 97165-GO; G0378; J1650